=== PATIENT | female | born 1960 | race Caucasian/White ===

== ENCOUNTER 2022-09-22 06:39 | Outpatient (CLI) | payer OTHER, SELFPAY ==
--- NOTE | ~2022-09-22 | MR_ITS ---
MRI of the lumbar spine Clinical History: Back pain Technique: Axial T2-weighted images, and sagittal T1-weighted, T2-weighted, and T2 fat-sat images wer e acquired. Findings: There is no fracture or subluxation of the lumbar spine. Vertebral bodies maintain normal h eight and alignment. No suspicious bone marrow signal abnormality seen. At L1-L2, there is no disc bulge or herniation. No spinal canal stenosis or neural foraminal narrowin g. At L2-L3, there is minimal degenerative disc narrowing and mild facet arthropathy. No disc bulge or h erniation. No spinal canal stenosis or neural foraminal narrowing. L3-L4, there is mild diffuse disc bulge and mild facet arthropathy. No spinal canal stenosis or neura l foraminal narrowing. At L4-L5, there is minimal disc bulge and mild facet arthropathy. No spinal canal stenosis or neural foraminal narrowing. At L5-S1, there is no disc bulge or herniation. There is mild facet arthropathy. No spinal canal sten osis or neural foraminal narrowing. Paravertebral soft tissues are unremarkable. Impression: Minimal degenerative change, as above. Reviewed, dictated and finalized at location . Impression: Minimal degenerative change, as above.
== END 2022-09-22 06:40 | disposition home or self-care (01) ==
PROVIDERS: PCP Family Medicine; Visit Provider Family Medicine
DX: M54.50 Low back pain, unspecified (principal)
CPT/HCPCS: 72148

== ENCOUNTER 2024-09-07 09:46 | Emergency (ER) | payer OTHER, SELFPAY ==
[2024-09-07 10:02] VITALS: BP 173/102; PULSE 88; RESP 18; TEMP 36.4; O2SAT 98
--- NOTE | 2024-09-07 10:02 | ED_ITS ---
HPI - Abdominal Pain General Chief Complaint: Abdominal Pain Stated Complaint: stomach pain, low abd pain Source: patient and RN notes reviewed Mode of arrival: ambulatory Limitations: no limitations History of Present Illness HPI narrative: 64-year-old female history of MS and GERD presented for complaint of mid abdominal pain radiating to the mid/low back. Onset 0100. She says it feels like something ?blew up or shot off inside the stomach. Has had burning sensation and bloating since then. Rates pain 01/02. Takes omeprazole. Patient also endorses the left upper arm feels 'funny' with some pain to the back of the upper arm like a pinched nerve. Also reports some chest discomfort which she describes as nerves. Denies associated nausea, vomiting, diarrhea, dizziness, fever, or palpitations. LBM today. Related Data Allergies Allergy/AdvReac Type Severity Reaction Status Date / Time codeine Allergy Unknown UNKNOWN Verified 09/07/24 10:22 GENERIC PREDNISONE Allergy Intermediate HIVES Uncoded 09/07/24 10:22 Review of Systems Review of Systems: CONSTITUTIONAL: Denies body aches, fever, chills ENT: Denies rhinorrhea, congestion CARDIOVASCULAR: Denies chest pain, palpitations, or edema. RESPIRATORY: Denies cough or dyspnea. GASTROINTESTINAL: Endorses abdominal pain Denies nausea, vomiting, diarrhea, hematochezia, melena, hematemesis GENITOURINARY: Denies dysuria, hematuria, or CVA tenderness. SKIN: Denies rash, or wounds. MUSCULOSKELETAL: reports mid low back pain NEUROLOGIC: Denies headache, numbness, tingling, or weakness. All systems reviewed & are unremarkable except as noted in HPI and below PMFSH Past Medical History Medical History (Updated 09/07/24 @ 10:44 by Lexi Arambula, ASSISTANT PROFESSOR OF THEATER) Multiple sclerosis Comments At time of signature, I have reviewed and agree with nursing past medical, surgical, social and family history unless otherwise noted. Please see nursing chart for further information. There is no relevant family history pertinent to the presenting complaint Exam Narrative: GENERAL: Well-appearing, and in no acute distress. EYES: EOMI. Conjunctivae normal. ENT: Mucous membranes pink and moist. CHEST: No respiratory distress. Clear to auscultation. HEART: Regular rate and rhythm. No murmur appreciated. Normal peripheral pulses. ABDOMEN: abd soft, nondistended, normal active bowel sounds. Tender abdomen to epigastric area; No guarding, rebound tenderness, asymmetry. No pulsatile masses. No organomegaly. Negative Rosales?s sign. No periumbilical tenderness. No Supra public tenderness or distension. EXTREMITIES: Normal range of motion. No edema. SKIN: Warm, dry, no rash. Capillary refill normal. Normal skin turgor. NEURO: No focal deficits. Alert and oriented x3. PSYCH: Normal affect. Course Course Emergency Course: Patient is aware of diagnosis, understands and agrees to treatment plan. Anticipatory guidance given. Patient agrees to follow-up as directed and is aware of reasons to seek care at the emergency department. Portions of this record may have been created with voice recognition software Level of Care: Express Care Visit Vital Signs Vital signs: Vital Signs Temperature 97.6 F 09/07/24 10:02 Pulse Rate 88 09/07/24 10:02 Respiratory Rate 18 09/07/24 10:02 Blood Pressure 173/102 H 09/07/24 10:02 Pulse Oximetry 98 09/07/24 10:02 Oxygen Delivery Room Air 09/07/24 10:02 Temperature 97.6 F 09/07/24 10:02 Pulse Rate 88 09/07/24 10:02 Respiratory Rate 18 09/07/24 10:02 Blood Pressure 173/102 H 09/07/24 10:02 Pulse Oximetry 98 09/07/24 10:02 Oxygen Delivery Room Air 09/07/24 10:02 Transfer Transfered to: [place] Transportation: Other (For private vehicle) Transfer rationale: Pt is agreeable to transfer. Requests transfer to [facility] via private vehicle/ ambulance. Risks of transportation reviewed with pt including injury, worsening of condition and . v/u. Sister will be driving pt; Report called to hospital, spoke with Dr Dubose; accepting physician. Pt is in stable condition at time of transfer. Advised to remain NPO and go directly to the hospital. MDM - Abdominal Pain MDM Narrative Medical decision making narrative: Patient with abdominal pain rating 7/10, bloating and radiating to the back. Advised ER transfer. Differential Diagnosis Differential diagnosis: Likely abdominal pain, acute appendicitis, calculus of kidney, constipation, diverticulitis, gastroenteritis, pancreatitis, small bowel obstruction and other ( GERD, PUD, gastritis, pancreatitis, gallbladder disease, hepaitits, acute [place], pericarditis, aortic dissection, pneumonia, pyelonephritis, bowel obstruction, PE, ingested foreign body) Discharge Plan Discharge Clinical Impression: Abdominal pain Qualifiers: Abdominal location: epigastric Qualified Code(s): R10.13 - Epigastric pain Patient Disposition: Acute Care Hospital Condition: Stable Patient Language: Monegasque Follow-up/Referrals: Jamil,MD Brando [Primary Care Provider] - Time of Disposition: 10:35
== END 2024-09-07 10:35 | disposition short-term general hospital (02) ==
PROVIDERS: Emergency Provider Nurse Practitioner Family; PCP Family Medicine
DX: R10.13 Epigastric pain (principal); G35 Multiple sclerosis
CPT/HCPCS: 99212; G0463

== ENCOUNTER 2024-09-07 10:57 | Emergency (ER) | payer OTHER, SELFPAY ==
--- NOTE | ~2024-09-07 | CT_ITS ---
Clinical Indication: Pain CT Scan of the Chest, Abdomen, and Pelvis with Contrast: Technique: Contiguous sections were acquired throughout the chest, abdomen, and pelvis after intraven ous administration of 100 cc of Omnipaque 350. Dose reduction technique was used on this scan by harvey rivero automated exposure control and iterative reconstruction technique. The dose-length product (DL P) was 620.26 mGy-cm. Findings: There is no evidence of any significant mediastinal, hilar or axillary lymphadenopathy. The mediastin al soft tissues appear normal. No aortic aneurysm or dissection. No pulmonary embolus seen. There is no evidence of pleural or pericardial effusion. The lungs are clear. No pulmonary nodules or infiltrates are noted. Suspected diffuse hepatic steatosis. Tiny gallstone. The spleen, pancreas, adrenals and kidneys are w ithin normal limits. No evidence of aortic aneurysm or dissection. No lymphadenopathy. No bowel obstruction or bowel wall thickening. There is no evidence to suggest acute appendicitis. Urinary bladder is unremarkable. No pelvic mass. No ascites. Impression: No acute abnormality. Diffuse hepatic steatosis. Tiny gallstone. Reviewed, dictated and finalized at location . Impression: No acute abnormality. Diffuse hepatic steatosis. Tiny gallstone.
--- OUTSIDE RECORDS SUMMARY | 2024-09-07 10:58 | XMS_ITS | Data Portability ---
Author Organization [facility], [address] ([place]) Address [address] [place] [address] Care Team Providers Care Extension Course Coordinator Name Role Phone TO GAN Primary Care Provider [phone] Assessment Encounter Date Assessment Date Assessment LastModified by Organization Details LastModified Time 11/01/2023 11/01/2023 In summary, patient is in the midst of what appears to be an MS flareup with leg weakness and brain fog. She is under a lot of stress with a with cancer and this may have precipitated that. We will do a short course of oral prednisone. christina PLAN 1. Sixteen day taper of oral prednisone. 2. Continue Rebif for MS preventive therapy. 3. I asked patient to give us a call in a week and let us know how she is doing. 4. Formal office follow up in six months. christina [email or web address] Not available 11/02/2023 11:23:38 05/09/2024 05/09/2024 In summary, patient s MS is stable. PLAN 1. Continue Rebif injections. 2. Follow up in six months. Patient is aware that I will be retiring at the end of the year, and she would like a referral down to the [facility] under Dr. Ruiz. We will be happy to help with that referral for her. [email or web address] Not available 05/09/2024 11:34:41 Plan of Treatment Reminders Order Date Submit Date Provider Last Modified By Organization Details Last Modified Time Details Appointments None recorded. Lab None recorded. Referral None recorded. Procedures None recorded. Surgeries None recorded. Imaging None recorded. Medication Orders prednisone 10 mg tablet 2023 024 [facility], [address] [facility], [place], [address], 4 13:03:03 Patient TargetsNo targets recorded. Patient InstructionsNo instructions recorded. Reason for Referral None Reported. Problems Name Problem SNOMED Code Status Onset Date Resolution Date Notes Provider Name and Address Organization Details Recorded Time Multiple sclerosis 45723807 Active 024 Missael [facility] 4 16:20:22 Problem Notes None recorded. Procedures Surgical History Date Name Laterality Status Provider Name and Address Organization Details Recorded Time Colonoscopy with biopsy completed Not Available Health Note 10/30/2023 14:02:07 Imaging Results None recorded. Procedure Notes None recorded. Medical Equipment None Reported. Allergies Allergen ID Allergen Name Allergen Category Reaction Reaction Severity Criticality Documentation Date Start Date Code Code System Note Provider Name and Address Organization Details Recorded Time 082706 prednisol one medicatio n hives Not available Not available 07/24/20232007 8638 RxNorm React ion: Hives ; Rash; Not Available Not Available Not Available 881743 codeine medicatio n nausea Not available Not available 07/24/20232007 2670 RxNorm React ion: Nause a; Not Available Not Available Not Available Medications Name Sig Start Date Stop Date Status Note LastModified by Organization Details LastModified Time cyclobenzapr ine 10 mg tablet TAKE 1 TABLET BY MOUTH THREE TIMES DAILY NEEDED active Not Available Not Available No t Available prednisone 10 mg tablet 6 tablets daily for 4 days, 4 tablets daily for 4 days, 2 tablets daily for 4 days, 1 tablet daily for 1 day, then stop active Not Available Not Available No t Available BD Regular Bevel [place] 20 gauge x 1 USE TO DRAW ACTHAR active Not Available Not Available No t Available metoprolol succinate ER 50 mg tablet,exten ded release 24 hr TAKE 1 TABLET BY MOUTH DAILY active Not Available Not Available Not Available sertraline 100 mg tablet TAKE 1 TABLET BY MOUTH DAILY active Not Available Not Available Not Available syringe (disposable) 3 mL USE FOR ACTHAR active Not Available Not Available No t Available sertraline 25 mg tablet TAKE 1 (one) tablet once daily active Not Available Not Available No t Available omeprazole 20 mg capsule,jaz yed release TAKE 1 CAPSULE BY MOUTH DAILY active Not Available Not Available Not Available amoxicillin 875 mg-potassium clavulanate 125 mg tablet TAKE 1 TABLET BY MOUTH TWO TIMES DAILY active Not Available Not Available Not Available Rebif (with albumin) 44 mcg/0.5 mL subcutaneous syringe Inject 0.5 mL 3 times a week by subcutaneou s route. 2024 active Not Available Not Available Not Avai lable Sharps Container USE FOR NEEDLE DISPOSAL active Not Available Not Available No t Available Alcohol Prep Pads USE FOR ACTHAR active Not Available Not Available No t Available BD Regular Bevel [place] 25 gauge x 5/8 USE TO INJECT ACTHAR active Not Available Not Available No t Available Rebif Rebidose 44 mcg/0.5 mL subcutaneous pen injector active Not Available Not Available Not Available Acthar 80 unit/mL injection gel INJECT 1 ML (80 UNITS) UNDER THE SKIN DAILY FOR 10 DAYS [G35] active Not Available Not Available No t Available Vitals Date Recorded Systolic blood pressure Diastolic blood pressure Provider Name and Address Organization Details Last Updated DateTime 05/09/2024 108 mm[Hg] 70 mm[Hg] Kvng Alberts MD [facility] [address], [phone] 05/09/2024 11:28:15 Social History Question Answer Notes LastModified by Organizat ion Details LastModified Time Do You Have An Advance Directive? No [email or web address] Information not available 10/30/2023 What Is Your Level Of Alcohol Consumption? None [email or web address] Information not available 10/30/2023 What Is Your Level Of Caffeine Consumption? Occasional [email or web address] Information not available 10/30/2023 Are You Currently Employed? No [email or web address] Information not available 10/30/2023 What Is Your Occupation? [employer] [email or web address] Information not available 10/30/2023 How Many Times Per Week Do You Exercise? Less Than 1 Time Per Week [email or web address] Information not available 10/30/2023 Do You Have A Medical Power Of Radio Interference Expert? No [email or web address] Information not available 10/30/2023 What Was The Date Of Your Most Recent Tobacco Screening? 11/01/2023 [email or web address] Information not available 10/30/2023 What Is Your Relationship Status? [email or web address] Information not available 10/30/2023 Do You Use Any Illicit Or Recreational Drugs? No [email or web address] Information not available 10/30/2023 Sex: Unknown Functional Status Question Answer Note LastModified by Organizat ion Details LastModified Time What is your exercise level? Occasional [email or web address] Information not available 10/30/2023 Mental Status None recorded. Family History Relationship Description Onset Age of this Age Resolved Age Notes LastModified by Organization Details LastModified Time Mother Arthritis [email or web address] Not available 10/30/2023 14:02:06 Mother Asthma [email or web address] Not available 14:02:06 Maternal Grandmother Arthritis [email or web address] Not available 11/2023 14:02:06 Sister Asthma [email or web address] Not available 14:02:06 Sister Diabetes mellitus [email or web address] Not available 2023 14:02:06 Sister Hypertensive disorder [email or web address] Not available 2023 14:02:06 Father Family history of malignant neoplasm [email or web address] Not available 2023 14:02:06 Father Diabetes mellitus [email or web address] Not available 2023 14:02:06 Father Hypertensive disorder [email or web address] Not available 2023 14:02:06 Maternal Grandfather Family history of malignant neoplasm [email or web address] Not available 2023 14:02:06 Brother Diabetes mellitus [email or web address] Not available 2023 14:02:06 Notes:Mother has arthritis M other has asthma Mother has brother also has ms. and mother had als. Brother has diabetes Brother has brother also has ms. and mother had als. Medical History Condition Response Diabetes N Anxiety Disorder N Bleeding Disorder N Attention-deficit Hyperactivity Disorder N High Blood Pressure Y Arthritis Y Hyperlipidemia N Cancer N Stroke N Thyroid Problems N Asthma N Depression N COPD N Anemia N Seizures N Heart Disease N Fibromyalgia N Osteoporosis N Kidney Disease N Gynecological HistoryNo gynecological history recorded. Obstetrics History GPAL:G 0 P 0 0 0 0 Past Encounters Encounter ID Performer Location Encounter Start Date Encounter Closed Date Diagnosis/Indication Diagnosis SNOMED-CT Code Diagnosis ICD10 Code Diagnosis Note [id number] Kvng Alberts MD [address] ([place]) [address] [place] [phone] 11/01/2023 12:13:37 11/06/2023 15:06:50 Multiple sclerosis 78607571 G35 [id number] Kvng Alberts MD [address] ([place]) [address] [place] [address],[address] [place] [address] 11/09/2023 13:14:29 11/11/2023 14:24:53 [id number] Kvng Alberts MD [address] ([place]) [address] [place] [address],[address] [place] [address] 05/09/2024 10:56:29 05/09/2024 12:43:51 Multiple sclerosis 63414384 G35 Taking hig h risk medication 0861238341 87619 Z79.899 Health Concerns Section Related Observation LastModified by Organization Detai ls LastModified Time None Recorded Concern Status LastModified by Organization Details LastModified Time None Recorded Advance Directives Directive N: Payers Encounter Date Sequence Insurance Name Policy Number Policy Nance Covered Member ID Nance Member ID Guarantor Name 11/09/2023 1 [facility] [employer] ([place]) [id number] Celinaelvia Diaz [id number] [facility] 05/09/2024 1 [facility] [place] [place] [id number] [facility] [id number] Celina Horton Notes Date Note Type Note Provider Name and Address Organization Details Recorded Time 11/01/2023 text/html Patient was seen in the office on an urgent basis today.Patient has multiple sclerosis and is on Rebif injections. She had not had any flareups in many years but, starting five days ago, began experiencing leg weakness with some difficulty walking. She has also felt foggy headed. She feels this is a flareup for her. She has taken prednisone in the past and has tolerated this well (she notes an ALLERGY TO PREDNISILONE) and would like to do a course of prednisone again.christina Kvng Alberts MD [address] [place] [address], [phone], [facility] 11/02/2023 11:25:40 05/09/2024 text/html Patient was seen in the office for follow up. She has multiple sclerosis. She is on Rebif injections. She tolerates those well. She had a flareup in November 2023 with some confusion that was treated with Acthar and she is now back to baseline. She is walking without any adaptive equipment and is independent in her cares. She does not feel we need to make any changes today. Kvng Alberts MD [address] [facility], [place], [address], [place] [facility] 05/10/2024 08:33:17 OBGyn Episode No OBEpisode recorded.
--- OUTSIDE RECORDS SUMMARY | 2024-09-07 10:59 | XMS_ITS | Clinical Summary ---
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 Name Role Phone Brando Negron MD Primary Care Provider Allergies Active Allergy Reactions Criticality Noted Date Comments Codeine Nausea only Low 08/21/2007 Prednisolone Hives Medium 08/21/2007 Medications omeprazole (PriLOSEC) 20 mg capsule Take 1 capsule (20 mg total) by mouth daily 04/22/2024 Active sertraline (ZOLOFT) 100 mg tablet Take 1 tablet (100 mg total) by mouth daily Active sertraline (ZOLOFT) 25 mg tablet TAKE 1 (one) tablet once daily Active metoprolol XL (TOPROL-XL) 50 mg extended release tablet Take 1 tablet (50 mg total) by mouth daily Active ascorbic acid (vitamin C) 1,000 mg tablet Take 800 mg by mouth daily Active magnesium gluconate 200 mg tabletIndicatio ns:hypomagnesem ia 1.125 tablets (225 mg total) Active zinc gluconate 50 mg tablet Take 7.5 mg by mouth daily Active Rebif, with albumin, 44 mcg/0.5 mL injection Inject 0.5 mL (44 mcg total) under the skin 3 (three) times a week 18 mL 1 08/02/2024 Active Active Problems Problem Noted Date Diagnosed Date Multiple sclerosis 10/29/2023 Encounters Date Type Department Care Team Description 09/04/2024 Telephone [facility] Multiple Sclerosis [address] [place] [phone] Jen Mcwilliams MD 08/20/2024 5:43 PM WAIST PLEATER - 08/20/2024 11:59 PM WAIST PLEATER Hospital Encounter [facility] [address] [place] [address] Jen Mcwilliams MD Multiple sclerosis (HCC) Discharge Disposition: Discharge to home or self care 07/24/2024 9:42 AM WAIST PLEATER - 07/24/2024 11:59 PM WAIST PLEATER Hospital Encounter [facility] Radiology [address] [facility] [place] [address] Jen Mcwilliams MD Multiple sclerosis (HCC) Discharge Disposition: Discharge to home or self care 07/02/2024 4:30 PM WAIST PLEATER Lab [facility] [address] [place] [phone] Multiple sclerosis (HCC); Vitamin D deficiency; High risk medication use 07/02/2024 3:00 PM WAIST PLEATER Office Visit [facility] Multiple Sclerosis [address] [facility] [address] [place] [address] Jen Mcwilliams MD High risk medication use (Primary Dx); Multiple sclerosis (HCC); Vitamin D deficiency from Last 3 Months Medical History Medical History Date Comments Hypertension Depression Anxiety Family History Medical History Relation Name Comments Multiple sclerosis Brother Cancer Father ALS Mother Relation Name Status Comments Brother Father Mother Social History Tobacco Use Types Packs/Day Years Used Date Smoking Tobacco: Never Smokeless Tobacco: Never Tobacco Cessation:Counseling Given: Not Answered AUDIT-C Answer Date Recorded Q1: How often do you have a drink containing alc ohol? Never 07/02/2024 Average Number of Drinks Not on file 025 Frequency of Binge Drinking Not on file 12/2024 Comments No Sex and Gender Information Value Date Recorded Sex Assigned at Not on file Legal Sex Female 3:48 PM WAIST PLEATER Gender Identity Not on file Sexual Orientation Not on file Obstetrics History Last Filed Vital Signs Vital Sign Reading Time Taken Comments Blood Pressure 165/94 07/02/2024 2:52 PM WAIST PLEATER Pulse 87 07/02/2024 2:52 PM WAIST PLEATER Temperature - - Respiratory Rate - - Oxygen Saturation - - Inhaled Oxygen Concentration - - Weight 88.5 kg (195 lb) 08/20/2024 5:48 PM WAIST PLEATER Height 185.4 cm (6' 1 ) 08/20/2024 5:48 PM WAIST PLEATER Body Mass Index 25.73 08/20/2024 5:48 PM WAIST PLEATER Plan of Treatment Health Maintenance Due Date Last Done Comments Cervical Cancer Screening 1961 Colon Cancer Screening-Colonoscopy 1961 Depression Screening 1961 Hepatitis C Screening 1961 DTaP/Tdap/Td Vaccine (1 - Tdap) 01/18/1972 Hepatitis B Screening 1979 Regular Well Visit/Exam 18-64 1979 Zoster Vaccine (1 of 2) 2011 Covid-19 Vaccine (4 - season) 2024 05/17/2021, 09/25/2020, 08/28/2020 Influenza Vaccine (#1) 2024 , 04/21/2022, 07/05/2021, Additional history exists Breast Cancer Screening-Mammogram 05/27/2025 05/27/2024, 05/27/2024, 05/25/2023, Additional history exists Pneumococcal vaccine <65 Aged Out No longer eligible based on patient's age to complete this topic Procedures Procedure Name Priority Date/Time Associated Diagnosis Comments MRI THORACIC SPINE W WO CONTRAST Schedule Routine, Read Routine (OP Routine) 08/20/2024 7:24 PM WAIST PLEATER Multiple sclerosis (HCC) MRI CERVICAL SPINE W WO CONTRAST Schedule Routine, Read Routine (OP Routine) 08/20/2024 7:24 PM WAIST PLEATER Multiple sclerosis (HCC) MRI MS BRAIN 3T PROTOCOL W WO CONTRAST Routine 07/24/2024 10:35 AM WAIST PLEATER Multiple sclerosis (HCC) EGFR Routine 07/02/2024 4:00 PM WAIST PLEATER Multiple sclerosis (HCC) High risk medication use DIFFERENTIAL AUTO Routine 07/02/2024 4:0 0 PM WAIST PLEATER Multiple sclerosis (HCC) High risk medication use CBC WITH AUTO DIFFERENTIAL Routine 07/02/2024 4:00 PM WAIST PLEATER Multiple sclerosis (HCC) High risk medication use COMPREHENSIVE METABOLIC PANEL Routine 07/02/2024 4:00 PM WAIST PLEATER Multiple sclerosis (HCC) High risk medication use VITAMIN D 25 HYDROXY Routine 07/02/2024 4:00 PM WAIST PLEATER Multiple sclerosis (HCC) Vitamin D deficiency from Last 3 Months Results * MRI Thoracic Spine W WO Contrast (08/20/2024 7:24 PM WAIST PLEATER) Anatomical Region Laterality Modality Spine N/A Magnetic Resonan ce 08/21/2024 11:0 0 AM WAIST PLEATER Impressions 08/21/2024 11:53 AM WAIST PLEATER 1. T2 hyperintense lesion in the ventral cord at C1-C2, not present on distant comparison exam from 2008. No active demyelination or enhancement. 2. No thoracic cord lesions. 3. Multilevel degenerative changes in the cervical and thoracic spine, most prominently at C4-C5 with moderate spinal canal and severe bilateral neuroforaminal stenosis. Dictated by: Mukul Clay M.D. The radiology attending physician has personally reviewed this study, and had reviewed and/or edited this written report and agrees with it. Electronically signed by: Paulina Hudson M.D. Narrative 08/21/2024 11:53 AM WAIST PLEATER EXAMINATION: 1. Magnetic resonance imaging (MRI) of the cervical spine without and with contrast 2. Magnetic resonance imaging (MRI) of the thoracic spine without and with contrast HISTORY: 64 years-old Female with multiple sclerosis. TECHNIQUE: Multiplanar multi-weighted MRI of the cervical spine was performed without and with intravenous contrast using the standard protocol. Multiplanar multi-weighted MRI of the thoracic was performed without and with intravenous contrast using the standard protocol. Scanner: [facility] Field Strength: 3T Contrast information: 20 mL Gadoterate Meglumine COMPARISON: MRI of thoracic spine 08/01/2008, MRI cervical spine 12/11/2008 FINDINGS: CERVICAL SPINE: New Spine T2 Lesions: T2 hyperintense lesion in the ventral cord at C1-C2 Enhancing Spine Lesions: None. There is straightening of the cervical spine. Moderate type I endplate changes present at C4-C5 posteriorly. No acute fracture is identified. The craniocervical junction is normal. The visualized portions of the skull base and the posterior fossa are normal. There is disc height loss, most prominently at C4-C5. Disc osteophyte complex at this level results in moderate spinal canal stenosis. There is severe bilateral neuroforaminal stenosis at this level. There are no annular fissures identified. No soft tissue abnormality is identified. Normal signal voids are present in the vertebral arteries. THORACIC SPINE: New Spine T2 Lesions: None. Enhancing Spine Lesions: None. The alignment of the thoracic spine is normal. Vertebral bodies demonstrate normal signal intensity on all sequences. There are no compression fractures. The spinal cord demonstrates normal signal intensity on all sequences. There is multilevel mild intervertebral disc height loss in the thoracic spine. Minimal disc bulge is present at multiple levels, most prominently at T6-T7, T7-T8, and T10-T11. There is no high-grade spinal canal or foraminal stenosis. Limited views of the chest and abdomen show no soft tissue abnormality. The aorta is normal. Procedure Note Paulina Hudson MD - 08/21/2024 EXAMINATION: 1. Magnetic resonance imaging (MRI) of the cervical spine without and with contrast 2. Magnetic resonance imaging (MRI) of the thoracic spine without and with contrast HISTORY: 64 years-old Female with multiple sclerosis. TECHNIQUE: Multiplanar multi-weighted MRI of the cervical spine was performed without and with intravenous contrast using the standard protocol. Multiplanar multi-weighted MRI of the thoracic was performed without and with intravenous contrast using the standard protocol. Scanner: [facility] Field Strength: 3T Contrast information: 20 mL Gadoterate Meglumine COMPARISON: MRI of thoracic spine 08/01/2008, MRI cervical spine 12/11/2008 FINDINGS: CERVICAL SPINE: New Spine T2 Lesions: T2 hyperintense lesion in the ventral cord at C1-C2 Enhancing Spine Lesions: None. There is straightening of the cervical spine. Moderate type I endplate changes present at C4-C5 posteriorly. No acute fracture is identified. The craniocervical junction is normal. The visualized portions of the skull base and the posterior fossa are normal. There is disc height loss, most prominently at C4-C5. Disc osteophyte complex at this level results in moderate spinal canal stenosis. There is severe bilateral neuroforaminal stenosis at this level. There are no annular fissures identified. No soft tissue abnormality is identified. Normal signal voids are present in the vertebral arteries. THORACIC SPINE: New Spine T2 Lesions: None. Enhancing Spine Lesions: None. The alignment of the thoracic spine is normal. Vertebral bodies demonstrate normal signal intensity on all sequences. There are no compression fractures. The spinal cord demonstrates normal signal intensity on all sequences. There is multilevel mild intervertebral disc height loss in the thoracic spine. Minimal disc bulge is present at multiple levels, most prominently at T6-T7, T7-T8, and T10-T11. There is no high-grade spinal canal or foraminal stenosis. Limited views of the chest and abdomen show no soft tissue abnormality. The aorta is normal. IMPRESSION: 1. T2 hyperintense lesion in the ventral cord at C1-C2, not present on distant comparison exam from 2008. No active demyelination or enhancement. 2. No thoracic cord lesions. 3. Multilevel degenerative changes in the cervical and thoracic spine, most prominently at C4-C5 with moderate spinal canal and severe bilateral neuroforaminal stenosis. Dictated by: Mukul Clay M.D. The radiology attending physician has personally reviewed this study, and had reviewed and/or edited this written report and agrees with it. Electronically signed by: Paulina Hudson M.D. Jen Mcwilliams MD IMG MRI PROCEDURES Final Result * MRI Cervical Spine W WO Contrast (08/20/2024 7:24 PM WAIST PLEATER) Anatomical Region Laterality Modality Spine N/A Magnetic Resonan ce 08/21/2024 11:0 0 AM WAIST PLEATER Impressions 08/21/2024 11:53 AM WAIST PLEATER 1. T2 hyperintense lesion in the ventral cord at C1-C2, not present on distant comparison exam from 2008. No active demyelination or enhancement. 2. No thoracic cord lesions. 3. Multilevel degenerative changes in the cervical and thoracic spine, most prominently at C4-C5 with moderate spinal canal and severe bilateral neuroforaminal stenosis. Dictated by: Mukul Clay M.D. The radiology attending physician has personally reviewed this study, and had reviewed and/or edited this written report and agrees with it. Electronically signed by: Paulina Hudson M.D. Narrative 08/21/2024 11:53 AM WAIST PLEATER EXAMINATION: 1. Magnetic resonance imaging (MRI) of the cervical spine without and with contrast 2. Magnetic resonance imaging (MRI) of the thoracic spine without and with contrast HISTORY: 64 years-old Female with multiple sclerosis. TECHNIQUE: Multiplanar multi-weighted MRI of the cervical spine was performed without and with intravenous contrast using the standard protocol. Multiplanar multi-weighted MRI of the thoracic was performed without and with intravenous contrast using the standard protocol. Scanner: [facility] Field Strength: 3T Contrast information: 20 mL Gadoterate Meglumine COMPARISON: MRI of thoracic spine 08/01/2008, MRI cervical spine 12/11/2008 FINDINGS: CERVICAL SPINE: New Spine T2 Lesions: T2 hyperintense lesion in the ventral cord at C1-C2 Enhancing Spine Lesions: None. There is straightening of the cervical spine. Moderate type I endplate changes present at C4-C5 posteriorly. No acute fracture is identified. The craniocervical junction is normal. The visualized portions of the skull base and the posterior fossa are normal. There is disc height loss, most prominently at C4-C5. Disc osteophyte complex at this level results in moderate spinal canal stenosis. There is severe bilateral neuroforaminal stenosis at this level. There are no annular fissures identified. No soft tissue abnormality is identified. Normal signal voids are present in the vertebral arteries. THORACIC SPINE: New Spine T2 Lesions: None. Enhancing Spine Lesions: None. The alignment of the thoracic spine is normal. Vertebral bodies demonstrate normal signal intensity on all sequences. There are no compression fractures. The spinal cord demonstrates normal signal intensity on all sequences. There is multilevel mild intervertebral disc height loss in the thoracic spine. Minimal disc bulge is present at multiple levels, most prominently at T6-T7, T7-T8, and T10-T11. There is no high-grade spinal canal or foraminal stenosis. Limited views of the chest and abdomen show no soft tissue abnormality. The aorta is normal. Procedure Note Paulina Hudson MD - 08/21/2024 EXAMINATION: 1. Magnetic resonance imaging (MRI) of the cervical spine without and with contrast 2. Magnetic resonance imaging (MRI) of the thoracic spine without and with contrast HISTORY: 64 years-old Female with multiple sclerosis. TECHNIQUE: Multiplanar multi-weighted MRI of the cervical spine was performed without and with intravenous contrast using the standard protocol. Multiplanar multi-weighted MRI of the thoracic was performed without and with intravenous contrast using the standard protocol. Scanner: [facility] Field Strength: 3T Contrast information: 20 mL Gadoterate Meglumine COMPARISON: MRI of thoracic spine 08/01/2008, MRI cervical spine 12/11/2008 FINDINGS: CERVICAL SPINE: New Spine T2 Lesions: T2 hyperintense lesion in the ventral cord at C1-C2 Enhancing Spine Lesions: None. There is straightening of the cervical spine. Moderate type I endplate changes present at C4-C5 posteriorly. No acute fracture is identified. The craniocervical junction is normal. The visualized portions of the skull base and the posterior fossa are normal. There is disc height loss, most prominently at C4-C5. Disc osteophyte complex at this level results in moderate spinal canal stenosis. There is severe bilateral neuroforaminal stenosis at this level. There are no annular fissures identified. No soft tissue abnormality is identified. Normal signal voids are present in the vertebral arteries. THORACIC SPINE: New Spine T2 Lesions: None. Enhancing Spine Lesions: None. The alignment of the thoracic spine is normal. Vertebral bodies demonstrate normal signal intensity on all sequences. There are no compression fractures. The spinal cord demonstrates normal signal intensity on all sequences. There is multilevel mild intervertebral disc height loss in the thoracic spine. Minimal disc bulge is present at multiple levels, most prominently at T6-T7, T7-T8, and T10-T11. There is no high-grade spinal canal or foraminal stenosis. Limited views of the chest and abdomen show no soft tissue abnormality. The aorta is normal. IMPRESSION: 1. T2 hyperintense lesion in the ventral cord at C1-C2, not present on distant comparison exam from 2008. No active demyelination or enhancement. 2. No thoracic cord lesions. 3. Multilevel degenerative changes in the cervical and thoracic spine, most prominently at C4-C5 with moderate spinal canal and severe bilateral neuroforaminal stenosis. Dictated by: Mukul Clay M.D. The radiology attending physician has personally reviewed this study, and had reviewed and/or edited this written report and agrees with it. Electronically signed by: Paulina Hudson M.D. us Jen Mcwilliams MD IM MRI PROCEDURES Final Result * MRI MS Brain 3T Protocol W WO Contrast (07/24/2024 10:35 AM WAIST PLEATER) Anatomical Region Laterality Modality Head and Neck N/A Magnetic Resonan ce 07/24/2024 11:2 1 AM WAIST PLEATER Impressions 07/24/2024 12:05 PM WAIST PLEATER Approximately 5 new small white matter lesions since 2019 exam, given differences in technique limiting precise comparison. Enhancing Lesions: None Other significant findings: None Dictated by: Donavon Gloria M.D. The radiology attending physician has personally reviewed this study, and had reviewed and/or edited this written report and agrees with it. Electronically signed by: Michael Wood M.D. Narrative 07/24/2024 12:05 PM WAIST PLEATER EXAMINATION: Magnetic resonance imaging (MRI) of the brain and brainstem without and with contrast HISTORY: Multiple sclerosis TECHNIQUE: Multiplanar multi-weighted MRI of the brain, brainstem was performed without and with intravenous contrast using the multiple sclerosis protocol, which includes high resolution 3D T1-weighted, FLAIR, and T2*-weighted gradient echo images. Scanner: [facility] Field Strength: 3T Contrast information: 19 mL Gadoterate Meglumine The post-contrast scan was performed approximately 5 minutes after IV contrast administration. COMPARISON: 04/04/2019 FINDINGS: BRAIN: There are multiple foci of hyperintensity on FLAIR and T2-weighted images within the white matter compatible. This includes periventricular, subcortical white matter, cerebellar lesions. When compared to 04/04/2019, there are likely multiple new or increased size of existing lesions, approximately 5 new lesions, such as a left centrum semiovale lesion seen series 8001 image 16. A few left fagan radiata lesions are also likely new seen series 8001 image 17. None of these have definite enhancement. T1 Hypointense Black Holes : None Enhancing Brain Lesions: None T2/FLAIR [place] of Disease: Mild, less than 10 typical lesions or 20 punctate lesions Parenchymal Volume Loss: None Central Vein Sign: Less than 3 CVS+ lesions. Probable central vein sign in a left fagan radiata and right centrum semiovale lesion Other Significant Findings: None The visualized portions of the optic nerves are normal. The scalp and calvarium are normal. The superior sagittal sinus demonstrates normal venous flow. The corpus callosum is normal in shape and signal intensity. The pituitary and sella are normal. The brainstem and craniocervical junction are unremarkable. Diffusion weighted images reveal no hyperintensities to suggest acute cerebral infarction. The susceptibility weighted sequences reveal no evidence of acute or chronic hemorrhage. The ventricles are normal in size and position without evidence of hydrocephalus. The paranasal sinuses are normal. The visualized portions of the mastoids are unremarkable. The orbits appear normal. Normal flow voids are demonstrated in the carotid arteries and basilar artery. Procedure Note Michael Wood MD - 07/24/2024 EXAMINATION: Magnetic resonance imaging (MRI) of the brain and brainstem without and with contrast HISTORY: Multiple sclerosis TECHNIQUE: Multiplanar multi-weighted MRI of the brain, brainstem was performed without and with intravenous contrast using the multiple sclerosis protocol, which includes high resolution 3D T1-weighted, FLAIR, and T2*-weighted gradient echo images. Scanner: [facility] Field Strength: 3T Contrast information: 19 mL Gadoterate Meglumine The post-contrast scan was performed approximately 5 minutes after IV contrast administration. COMPARISON: 04/04/2019 FINDINGS: BRAIN: There are multiple foci of hyperintensity on FLAIR and T2-weighted images within the white matter compatible. This includes periventricular, subcortical white matter, cerebellar lesions. When compared to 04/04/2019, there are likely multiple new or increased size of existing lesions, approximately 5 new lesions, such as a left centrum semiovale lesion seen series 8001 image 16. A few left fagan radiata lesions are also likely new seen series 8001 image 17. None of these have definite enhancement. T1 Hypointense Black Holes : None Enhancing Brain Lesions: None T2/FLAIR [place] of Disease: Mild, less than 10 typical lesions or 20 punctate lesions Parenchymal Volume Loss: None Central Vein Sign: Less than 3 CVS+ lesions. Probable central vein sign in a left fagan radiata and right centrum semiovale lesion Other Significant Findings: None The visualized portions of the optic nerves are normal. The scalp and calvarium are normal. The superior sagittal sinus demonstrates normal venous flow. The corpus callosum is normal in shape and signal intensity. The pituitary and sella are normal. The brainstem and craniocervical junction are unremarkable. Diffusion weighted images reveal no hyperintensities to suggest acute cerebral infarction. The susceptibility weighted sequences reveal no evidence of acute or chronic hemorrhage. The ventricles are normal in size and position without evidence of hydrocephalus. The paranasal sinuses are normal. The visualized portions of the mastoids are unremarkable. The orbits appear normal. Normal flow voids are demonstrated in the carotid arteries and basilar artery. IMPRESSION: Approximately 5 new small white matter lesions since 2019 exam, given differences in technique limiting precise comparison. Enhancing Lesions: None Other significant findings: None Dictated by: Donavon Gloria M.D. The radiology attending physician has personally reviewed this study, and had reviewed and/or edited this written report and agrees with it. Electronically signed by: Michael Wood M.D. us Jen Mcwilliams MD IMG MRI PROCEDURES Final Result * eGFR (07/02/2024 4:00 PM WAIST PLEATER) eGFR 82 >=60 mL/min/1. 73 m2 Comment: Interpretive Data Reference Interval Normal >/= 90 mL/min/1.73m2 Mildly decreased* 60 - 89 mL/min/1.73m2 Mildly to moderately decreased 45 - 59 mL/min/1.73m2 Moderately to severely decreased 30 - 44 mL/min/1.73m2 Severely decreased 15 - 29 mL/min/1.73m2 Kidney Failure < 15 mL/min/1.73m2 *Relative to young adult level Estimated glomerular filtration rate is determined by the 2020 CKD-EPI equation recommended by the National [employer] (A Unifying Approach to GFR Estimation: Recommendations of the NKF-ASK Task Force on Reassessing the Inclusion of Race in Diagnosing Kidney Disease, JASN 2020). The CKD-EPI equation should not be used for patients with unstable renal function and has not been validated in children and those over 70. Current interpretive data was last reviewed 2021. Blood 07/02/2024 4:00 PM WAIST PLEATER 07/02/2024 4:12 PM WAIST PLEATER us Jen Mcwilliams MD LAB BLOOD ORDERABLES Final Resul t [facility] Department [place] [address] * Differential, auto (07/02/2024 4:00 PM WAIST PLEATER) Neutrophil abs 2.7 1.5 - 6.5 K/cumm Imm gran abs 0.0 0.0 - 0.1 K/cumm [facility] Lymphocyte abs 1.6 0.8 - 3.3 K/cumm [facility] Monocyte abs 0.4 0.2 - 0.8 K/cumm [facility] Eosinophil abs 0.1 0.0 - 0.5 K/cumm [facility] Basophil abs 0.0 0.0 - 0.1 K/cumm [facility] Neutrophil pct 56.9 % [facility] Comment: Interpretive Data Percent cell count reference ranges are not reported, since discordance with absolute values may lead to misinterpretation of CBC data. Current Interpretive Data was last revised on 2017. Imm gran pct 0.2 % [facility] Comment: Interpretive Data Percent cell count reference ranges are not reported, since discordance with absolute values may lead to misinterpretation of CBC data. Current Interpretive Data was last revised on 2017. Lymphocyte pct 32.8 % [facility] Comment: Interpretive Data Percent cell count reference ranges are not reported, since discordance with absolute values may lead to misinterpretation of CBC data. Current Interpretive Data was last revised on 2017. Monocyte pct 7.8 % [facility] Comment: Interpretive Data Percent cell count reference ranges are not reported, since discordance with absolute values may lead to misinterpretation of CBC data. Current Interpretive Data was last revised on 2017. Eosinophil pct 1.9 % [facility] Comment: Interpretive Data Percent cell count reference ranges are not reported, since discordance with absolute values may lead to misinterpretation of CBC data. Current Interpretive Data was last revised on 2017. Basophil pct 0.4 % [facility] Comment: Interpretive Data Percent cell count reference ranges are not reported, since discordance with absolute values may lead to misinterpretation of CBC data. Current Interpretive Data was last revised on 2017. Blood 07/02/2024 4:00 PM WAIST PLEATER 07/02/2024 4:09 PM WAIST PLEATER us Jen Mcwilliams MD LAB BLOOD ORDERABLES Final Resul t [facility] [place] [address] * (ABNORMAL) CBC with auto differential (07/02/2024 4:00 PM WAIST PLEATER) [facility] WBC 4.8 3.8 - 9.9 K/cumm Hgb 11.7(L) 11.9 - 15.5 g/dL [facility] Hct 36.1 35.6 - 45.5 % [facility] Plt 107(L) 150 - 400 K/cumm [facility] MPV 12.2 9.1 - 12.3 fL [facility] RBC 4.21 3.90 - 5.20 M/cumm [facility] MCV 85.7 81.3 - 96.4 fL [facility] MCH 27.8 27.1 - 33.3 pg [facility] MCHC 32.4 32.3 - 35.7 g/dL [facility] RDW CV 14.2 11.1 - 14.9 % [facility] RDW SD 43.8 35.7 - 48.1 fL [facility] NRBC abs 0.00 0.00 - 0.01 K/cumm [facility] Blood 07/02/2024 4:00 PM WAIST PLEATER 07/02/2024 4:09 PM WAIST PLEATER us Jen Mcwilliams MD LAB BLOOD ORDERABLES Final Resul t Performing Organization Address City/[facility]/ZIP Co de Phone Number [facility] Department [place] [address] * Vitamin D 25 hydroxy (07/02/2024 4:00 PM WAIST PLEATER) [facility] Vitamin D 25-OH 39 30 - 80 ng/mL Blood 07/02/2024 4:00 PM WAIST PLEATER 07/02/2024 4:08 PM WAIST PLEATER us Jen Mcwilliams MD LAB BLOOD ORDERABLES Final Resul t Performing Organization Address City/[facility]/ZIP Co de Phone Number [facility] [place] [address] * Comprehensive metabolic panel (07/02/2024 4:00 PM WAIST PLEATER) Sodium 138 135 - 145 mmol/L Potassium, pl 4.3 3.3 - 4.9 mmol/L [facility] Chloride 103 97 - 110 mmol/L [facility] CO2 27 22 - 32 mmol/L [facility] Anion gap 8 2 - 15 mmol/L [facility] BUN 17 6 - 25 mg/dL [facility] Creatinine 0.81 0.60 - 1.10 mg/dL [facility] Glucose 94 70 - 199 mg/dL [facility] Comment: Interpretive Data Fasting glucose >/= 126 mg/dl is diagnostic for diabetes. Fasting is defined as no caloric intake for at least 8 hours. Fasting glucose between 100 mg/dl to 125 mg/dl is diagnostic of prediabetes. In a patient with classic symptoms of hyperglycemia or hyperglycemic crisis, a random glucose >/= 200 mg/dl is diagnostic for diabetes. In the absence of unequivocal hyperglycemia, results should be confirmed by repeat testing. The classification and Diagnosis of Diabetes Diabetes Care 202; 46: S19-S40. Current interpretive data was last revised 2022. Calcium 9.6 8.5 - 10.3 mg/dL [facility] Bilirubin, total 0.5 0.1 - 1.2 mg/dL [facility] Protein, pl 7.9 6.5 - 8.5 g/dL [facility] Albumin 4.5 3.5 - 5.0 g/dL [facility] Alk phos 105 40 - 130 Units/L [facility] ALT 25 7 - 45 Units/L [facility] AST 35 10 - 45 Units/L [facility] Blood 07/02/2024 4:00 PM WAIST PLEATER 07/02/2024 4:08 PM WAIST PLEATER us Jen Mcwilliams MD LAB BLOOD ORDERABLES Final Resul t [facility] Department [place] [address] from Last 3 Months Insurance [facility] [id number] [facility] [id number] Care Teams Interior Plant Caretaker Relationship Specialty Start Date End Date Brando Negron MD [address] [place] [id number] PCP - General Family Medicine 04/29/24
--- OUTSIDE RECORDS SUMMARY | 2024-09-07 10:59 | XMS_ITS | Continuity of Care Document ---
Author Organization [facility] Address [address] [place] [address] Phone Care Team Providers Care Instrumentation And Controls Designer Name Role Phone Tobin Frey MD Unavailable Unavailable Allergies, Adverse Reactions, Alerts Substance Reaction Status Criticality codeine Active No Information PREDNISOLONE ACETATE Active No Info rmation Medications Medication Instructions Dosage Effective Dates (start - stop) Status Comments sertraline 50 mg tablet take 1 tablet by oral route every day 50 MG - Active omeprazole 40 mg capsule,delayed release take 1 capsule by oral route every day before a meal 40 MG - Active metoprolol tartrate 50 mg tablet take 1 tablet by oral route 2 times every day with meals 50 MG - Active Rebif Rebidose 44 mcg/0.5 mL subcutaneous pen injector inject 0.5 milliliter by subcutaneous route 3 times every week at the same time on the same 3 days at least 48 hours apart. 44 MCG - Active Glucosamine-Chondroi tin-MSM (with antiox) 500 mg-500 mg-66.7 mg tablet - Active SUPER CALCIUM (unknown strength) Not Available - Active Advance Directives Directive Yes / No Effective Date File Name No Information Encounters Encounter Description Practice Location Reason(s) For Visit Diagnoses Date Provider Providers Copied on Encounter [facility], [address], [place], [address], [place] tel:[phone] [facility] Primary osteoarthritis of right kneePrimary osteoarthritis of left knee [address] [place], [place], [id number] . tel: [phone] Referring Provider: Brando Negron, [address] [place] [address], [id number] . tel:[phone] Family History Family Member Type Diagnosis Age At Onset Father Problem (finding) malignant neoplasm of l iver Mother Problem (finding) Alive and well Father Problem (finding) Payers Payer name Insurance type Covered alliance party ID Authorherminioa tilauren(s) No Information Social History Type Description Quantity Date Captured Comments Alcohol Use Details Unknown Caffeine Use Details Unknown Tobacco Use Status Current non-smoker 20 Smoking Status Never smoker Non-Smoking Tobacco Use Details : No Details Available : No Details Available Sex Female Vital Signs Date / Time: Height Weight BMI Pulse Rate Blood Pressure Temperature Respiratory Rate Body Surface Area Head Circumference Head Circ. Percentile Wt./Cole. Percentile BMI percentile Pulse Ox Inhaled Ox 10:45 AM 73.00 in 90.718 kg (200.00 lbs) 26.3 9 kg/m eter (2) 132/86 mm[Hg] Chief Complaint And Reason For Visit No Information Reason For Referral Reason For Referral No Information Plan Of Treatment Date Type Action Status Referral Ordered: RADEX KNE COMPL 4/MORE VIEWS LT ordered Referral Ordered: RADEX KNE COMPL 4/MORE VIEWS RT ordered History Of Present Illness Encounter Date Complaint History Of Prese nt Illness No Information Functional Status Date Functional Assessmen t No Information Instructions Date Instruction Additional Infor mation No Information Assessments Type Assessment Date assessment Primary osteoarthritis of right knee assessment Primary osteoarthritis of left k nee Patient Care Teams Name Effective Dates (start - stop) Status Members No Information
--- OUTSIDE RECORDS SUMMARY | 2024-09-07 10:59 | XMS_ITS | Encounter Summary ---
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
--- OUTSIDE RECORDS SUMMARY | 2024-09-07 10:59 | XMS_ITS | Clinical Summary ---
Author Organization [facility] Address [facility] [place] [address] Care Team Providers Care Supply Assistant Name Role Phone Brando Gan MD Primary Care Provider Social History Tobacco Use Types Packs/Day Years Used Date Smoking Tobacco: Never Assessed Comments No Sex and Gender Information Value Date Recorded Sex Assigned at Not on file Legal Sex Female 9:46 PM ARCHITECTURE DRAFTER Gender Identity Not on file Sexual Orientation Not on file Last Filed Vital Signs Vital Sign Reading Time Taken Comments Blood Pressure - - Pulse - - Temperature - - Respiratory Rate - - Oxygen Saturation - - Inhaled Oxygen Concentration - - Weight 90.7 kg (200 lb) 07/26/2017 2:07 PM ARCHITECTURE DRAFTER Height 185.4 cm (6' 1 ) 07/26/2017 2:07 PM ARCHITECTURE DRAFTER Body Mass Index 26.39 07/26/2017 2:07 PM ARCHITECTURE DRAFTER Plan of Treatment Health Maintenance Due Date Last Done Comments Cervical Cancer Screening Pap Smear (Age 30 to 64) Every 3 Years 1961 Colorectal Cancer Screening Colonoscopy (10 Years) 1961 Annual Physical 01/18/1964 Hepatitis C 1979 DTaP, Tdap and Td Vaccines (1 - Tdap) 01/18/1980 Cervical Cancer Screening Pap with HPV Testing (Age 30 to 64) Every 5 Years 1991 Cervical Cancer Screening with HPV 1991 Zoster Vaccines (1 of 2) 2011 COVID-19 Vaccine ( - season) 2024 Influenza Adult (#1) 2024 Mammogram Screening 05/27/2026 05/27/2024, 05/25/2023, 05/12/2022, Additional history exists RSV Immunization or 60+ Years (1 - 1-dose 75+ series) 01/18/2036 Meningococcal B Vaccine Aged Out No l onger eligible based on patient's age to complete this topic Meningococcal Vaccine Aged Out No felipa niru eligible based on patient's age to complete this topic Pneumococcal Vaccine: Pediatrics (0 to 5 Years) and At-Risk Patients (6 to 64 Years) Aged Out No longer eligible based on patient's age to complete this topic RSV Immunizations Under 20 Months Aged Out No longer eligible based on patient's age to complete this topic Procedures Procedure Name Priority Date/Time Associated Diagnosis Comments MG SCREENING W RENETTA KIMO DIGI Routine 05/27/2024 8:51 AM ARCHITECTURE DRAFTER Encounter for screening mammogram for malignant neoplasm of breast from Last 3 Months or Most Recently Relevant to Health Maintenance Results * MG SCREENING W RENETTA KIMO DIGI (05/27/2024 8:51 AM ARCHITECTURE DRAFTER) Anatomical Region Laterality Modality Breast Bilateral Mammography 05/27/2024 1:26 PM ARCHITECTURE DRAFTER Impressions 05/27/2024 1:27 PM ARCHITECTURE DRAFTER IMPRESSION: No suspicious change since the previous exams. Recommendation: 1: Routine Screening Bilateral in 1 Year Assessment: ACR BI-RADS 2 - BENIGN FINDING(S) Ordered By: BRANDO GAN Interpreted By: Jeremías Sinha MD, 05/27/2024 1:26 PM Narrative 05/27/2024 1:27 PM ARCHITECTURE DRAFTER [address] [place] [address] Examination: Digital screening mammogram with CAD. Clinical history: Asymptomatic patient presents for routine screening. Comparison: 05/25/2023, 05/12/2022, 02/25/2021, 09/03/2019. Technique: Bilateral digital mammograms. The exam was interpreted with the use of a computer-aided detection (CAD) system. Additional 3-D tomosynthesis images were acquired. Tissue density: The breasts are heterogeneously dense which may obscure small masses. Findings: The breast tissue is heterogeneously dense. The dense tissue may obscure some lesions mammographically. Glandular asymmetry remains evident. Benign-appearing calcification noted. No suspicious mass, microcalcification or area of architectural distortion can be identified. From a mammographic standpoint, routine followup in one year would seem adequate. Brando Gan MD MAMMO Final Resul t from Last 3 Months or Most Recently Relevant to Health Maintenance Insurance [employer] OPEN ACCESS [facility] [employer] OPEN ACCESS [facility] Care Teams Supply Assistant Relationship Specialty Start Date End Date Brando Gan MD [address] [place] [phone] PCP - General FAMILY PRACTICE 03/28/19
--- OUTSIDE RECORDS SUMMARY | 2024-09-07 10:59 | XMS_ITS | Referral Summary ---
Author Organization [facility] Address [address] [place] [phone] Care Team Providers Care Benefits Assistant Name Role Phone Brando Negron MD Primary Care Provider Encounters Date Type Department Care Team Description 09/04/2024 Telephone [facility] Multiple Sclerosis [address] [place] [phone] Jen Mcwilliams MD 08/20/2024 5:43 PM APPLIED BIOLOGY PROFESSOR - 08/20/2024 11:59 PM APPLIED BIOLOGY PROFESSOR Hospital Encounter [facility] [address] [place] [phone] Jen Mcwilliams MD Multiple sclerosis (HCC) Discharge Disposition: Discharge to home or self care 07/24/2024 9:42 AM APPLIED BIOLOGY PROFESSOR - 07/24/2024 11:59 PM APPLIED BIOLOGY PROFESSOR Hospital Encounter [facility] Radiology [address] [place] [address] Jen Mcwilliams MD Multiple sclerosis (HCC) Discharge Disposition: Discharge to home or self care 07/02/2024 4:30 PM APPLIED BIOLOGY PROFESSOR Lab [facility] [address] [place] [phone] Multiple sclerosis (HCC); Vitamin D deficiency; High risk medication use 07/02/2024 3:00 PM APPLIED BIOLOGY PROFESSOR Office Visit [facility] Multiple Sclerosis [address] [place] [address] Medicine 7[address] [place] [phone] Jen Mcwilliams MD High risk medication use (Primary Dx); Multiple sclerosis (HCC); Vitamin D deficiency from Last 3 Months Allergies Active Allergy Reactions Criticality Noted Date [...] Noted Date Diagnosed Date Multiple sclerosis 10/29/2023 Social History Tobacco Use Types Packs/Day Years [...] on file Legal Sex Female 3:48 PM APPLIED BIOLOGY PROFESSOR Gender Identity Not on file Sexual Orientation Not on file Last Filed Vital Signs Vital Sign Reading Time Taken Comments Blood Pressure 165/94 07/02/2024 2:52 PM APPLIED BIOLOGY PROFESSOR Pulse 87 07/02/2024 2:52 PM APPLIED BIOLOGY PROFESSOR Temperature - - Respiratory Rate - - Oxygen Saturation - - Inhaled Oxygen Concentration - - Weight 88.5 kg (195 lb) 08/20/2024 5:48 PM APPLIED BIOLOGY PROFESSOR Height 185.4 cm (6' 1 ) 08/20/2024 5:48 PM APPLIED BIOLOGY PROFESSOR Body Mass Index 25.73 08/20/2024 5:48 PM APPLIED BIOLOGY PROFESSOR Plan of Treatment Not on file Procedures Procedure Name Priority Date/Time Associated Diagnosis Comments MRI THORACIC SPINE W WO CONTRAST Schedule Routine, Read Routine (OP Routine) 08/20/2024 7:24 PM APPLIED BIOLOGY PROFESSOR Multiple sclerosis (HCC) MRI CERVICAL SPINE W WO CONTRAST Schedule Routine, Read Routine (OP Routine) 08/20/2024 7:24 PM APPLIED BIOLOGY PROFESSOR Multiple sclerosis (HCC) MRI MS BRAIN 3T PROTOCOL W WO CONTRAST Routine 07/24/2024 10:35 AM APPLIED BIOLOGY PROFESSOR Multiple sclerosis (HCC) EGFR Routine 07/02/2024 4:00 PM APPLIED BIOLOGY PROFESSOR Multiple sclerosis (HCC) High risk medication use DIFFERENTIAL AUTO Routine 07/02/2024 4:0 0 PM APPLIED BIOLOGY PROFESSOR Multiple sclerosis (HCC) High risk medication use CBC WITH AUTO DIFFERENTIAL Routine 07/02/2024 4:00 PM APPLIED BIOLOGY PROFESSOR Multiple sclerosis (HCC) High risk medication use COMPREHENSIVE METABOLIC PANEL Routine 07/02/2024 4:00 PM APPLIED BIOLOGY PROFESSOR Multiple sclerosis (HCC) High risk medication use VITAMIN D 25 HYDROXY Routine 07/02/2024 4:00 PM APPLIED BIOLOGY PROFESSOR Multiple sclerosis (HCC) Vitamin D deficiency from Last 3 Months Results * MRI Thoracic Spine W WO Contrast (08/20/2024 7:24 PM APPLIED BIOLOGY PROFESSOR) Anatomical Region Laterality Modality Spine N/A Magnetic Resonan ce 08/21/2024 11:0 0 AM APPLIED BIOLOGY PROFESSOR Impressions 08/21/2024 11:53 AM APPLIED BIOLOGY PROFESSOR 1. T2 hyperintense lesion in the ventral [...] Paulina Hudson M.D. Narrative 08/21/2024 11:53 AM APPLIED BIOLOGY PROFESSOR EXAMINATION: 1. Magnetic resonance imaging (MRI) of [...] intravenous contrast using the standard protocol. Scanner: [facility] Field Strength: 3T Contrast information: 20 [...] intravenous contrast using the standard protocol. Scanner: [facility] Field Strength: 3T Contrast information: 20 [...] Spine W WO Contrast (08/20/2024 7:24 PM APPLIED BIOLOGY PROFESSOR) Anatomical Region Laterality Modality Spine N/A Magnetic Resonan ce 08/21/2024 11:0 0 AM APPLIED BIOLOGY PROFESSOR Impressions 08/21/2024 11:53 AM APPLIED BIOLOGY PROFESSOR 1. T2 hyperintense lesion in the ventral [...] Paulina Hudson M.D. Narrative 08/21/2024 11:53 AM APPLIED BIOLOGY PROFESSOR EXAMINATION: 1. Magnetic resonance imaging (MRI) of [...] not present on distant comparison exam from 2009. No active demyelination or enhancement. 2. No [...] Paulina Hudson M.D. us Jen Mcwilliams MD IMG MRI PROCEDURES Final Result * MRI MS Brain 3T Protocol W WO Contrast (07/24/2024 10:35 AM APPLIED BIOLOGY PROFESSOR) Anatomical Region Laterality Modality Head and Neck N/A Magnetic Resonan ce 07/24/2024 11:2 1 AM APPLIED BIOLOGY PROFESSOR Impressions 07/24/2024 12:05 PM APPLIED BIOLOGY PROFESSOR Approximately 5 new small white matter lesions since 2019 exam, given differences in technique limiting precise comparison. Enhancing Lesions: None Other significant findings: None Dictated by: Donavon Gloria M.D. The radiology attending physician has personally reviewed this study, and had reviewed and/or edited this written report and agrees with it. Electronically signed by: Michael Wood M.D. Narrative 07/24/2024 12:05 PM APPLIED BIOLOGY PROFESSOR EXAMINATION: Magnetic resonance imaging (MRI) of the [...] : None Enhancing Brain Lesions: None T2/FLAIR [place] of Disease: Mild, less than 10 typical [...] : None Enhancing Brain Lesions: None T2/FLAIR [place] of Disease: Mild, less than 10 typical [...] it. Electronically signed by: Michael Wood M.D. Jen Mcwilliams MD [facility] MRI PROCEDURES Final Result * eGFR (07/02/2024 4:00 PM APPLIED BIOLOGY PROFESSOR) eGFR 82 >=60 mL/min/1. 73 m2 Comment: [...] last reviewed 2021. Blood 07/02/2024 4:00 PM APPLIED BIOLOGY PROFESSOR 07/02/2024 4:12 PM APPLIED BIOLOGY PROFESSOR us Jen Mcwilliams MD LAB BLOOD ORDERABLES Final Resul t [facility] Department [place] [address] * Differential, auto (07/02/2024 4:00 PM APPLIED BIOLOGY PROFESSOR) Neutrophil abs 2.7 1.5 - 6.5 K/cumm Imm gran abs 0.0 0.0 - 0.1 K/cumm [facility] Lymphocyte abs 1.6 0.8 - 3.3 K/cumm [facility] Monocyte abs 0.4 0.2 - 0.8 K/cumm [facility] Eosinophil abs 0.1 0.0 - 0.5 K/cumm [facility] Basophil abs 0.0 0.0 - 0.1 K/cumm [facility] Neutrophil pct 56.9 % [facility] Comment: Interpretive Data Percent cell count reference ranges are not reported, since discordance with absolute values may lead to misinterpretation of CBC data. Current Interpretive Data was last revised on 2017. Imm gran pct 0.2 % [facility] Comment: Interpretive Data Percent cell count reference ranges are not reported, since discordance with absolute values may lead to misinterpretation of CBC data. Current Interpretive Data was last revised on 2017. Lymphocyte pct 32.8 % [facility] Comment: Interpretive Data Percent cell count reference ranges are not reported, since discordance with absolute values may lead to misinterpretation of CBC data. Current Interpretive Data was last revised on 2017. Monocyte pct 7.8 % [facility] Comment: Interpretive Data Percent cell count reference ranges are not reported, since discordance with absolute values may lead to misinterpretation of CBC data. Current Interpretive Data was last revised on 2017. Eosinophil pct 1.9 % [facility] Comment: Interpretive Data Percent cell count reference ranges are not reported, since discordance with absolute values may lead to misinterpretation of CBC data. Current Interpretive Data was last revised on 2017. Basophil pct 0.4 % [facility] Comment: Interpretive Data Percent cell count reference ranges are not reported, since discordance with absolute values may lead to misinterpretation of CBC data. Current Interpretive Data was last revised on 2017. Blood 07/02/2024 4:00 PM APPLIED BIOLOGY PROFESSOR 07/02/2024 4:09 PM APPLIED BIOLOGY PROFESSOR us Jen Mcwilliams MD LAB BLOOD ORDERABLES Final Resul t [facility] Department [place] [address] * (ABNORMAL) CBC with auto differential (07/02/2024 4:00 PM APPLIED BIOLOGY PROFESSOR) WBC 4.8 3.8 - 9.9 K/cumm Hgb 11.7(L) 11.9 - 15.5 g/dL [facility] Hct 36.1 35.6 - 45.5 % [facility] Plt 107(L) 150 - 400 K/cumm [facility] MPV 12.2 9.1 - 12.3 fL [facility] RBC 4.21 3.90 - 5.20 M/cumm [facility] MCV 85.7 81.3 - 96.4 fL [facility] MCH 27.8 27.1 - 33.3 pg [facility] MCHC 32.4 32.3 - 35.7 g/dL [facility] RDW CV 14.2 11.1 - 14.9 % [facility] RDW SD 43.8 35.7 - 48.1 fL [facility] NRBC abs 0.00 0.00 - 0.01 K/cumm [facility] Blood 07/02/2024 4:00 PM APPLIED BIOLOGY PROFESSOR 07/02/2024 4:09 PM APPLIED BIOLOGY PROFESSOR Jen Mcwilliams MD LAB BLOOD ORDERABLES Final Resul t Performing Organization Address [facility] de Phone Number [facility] [place] [address] * Vitamin D 25 hydroxy (07/02/2024 4:00 PM APPLIED BIOLOGY PROFESSOR) Vitamin D 25-OH 39 30 - 80 ng/mL Blood 07/02/2024 4:00 PM APPLIED BIOLOGY PROFESSOR 07/02/2024 4:08 PM APPLIED BIOLOGY PROFESSOR Jen Mcwilliams MD LAB BLOOD ORDERABLES Final Resul t Performing Organization Address [facility] de Phone Number [facility] [place] [address] * Comprehensive metabolic panel (07/02/2024 4:00 PM APPLIED BIOLOGY PROFESSOR) [facility] Sodium 138 135 - 145 mmol/L Potassium, pl 4.3 3.3 - 4.9 mmol/L [facility] Chloride 103 97 - 110 mmol/L [facility] CO2 27 22 - 32 mmol/L [facility] Anion gap 8 2 - 15 mmol/L [facility] BUN 17 6 - 25 mg/dL [facility] Creatinine 0.81 0.60 - 1.10 mg/dL [facility] Glucose 94 70 - 199 mg/dL [facility] Comment: Interpretive Data Fasting glucose [...] classification and Diagnosis of Diabetes Diabetes Care 2021; 46: S19-S40. Current interpretive data was last revised 2022. Calcium 9.6 8.5 - 10.3 mg/dL [facility] Bilirubin, total 0.5 0.1 - 1.2 mg/dL [facility] Protein, pl 7.9 6.5 - 8.5 g/dL [facility] Albumin 4.5 3.5 - 5.0 g/dL [facility] Alk phos 105 40 - 130 Units/L [facility] ALT 25 7 - 45 Units/L [facility] AST 35 10 - 45 Units/L [facility] Blood 07/02/2024 4:00 PM APPLIED BIOLOGY PROFESSOR 07/02/2024 4:08 PM APPLIED BIOLOGY PROFESSOR us Jen Mcwilliams MD LAB BLOOD ORDERABLES Final Resul t [facility] Department of Laboratories [place] [phone] from Last 3 Months Insurance [facility] [id number] [facility] [facility] [facility] [id number] Care Teams Benefits Assistant Relationship Specialty Start Date End Date Brando Negron MD [address] [place] [phone] PCP - General Family Medicine 04/29/24
[2024-09-07 11:01] VITALS: BP 188/97; PULSE 83; RESP 18; TEMP 36.8; O2SAT 100
--- OUTSIDE RECORDS SUMMARY | 2024-09-07 13:09 | XMS_ITS | Clinical Summary ---
Author Organization [facility] Address [facility] [place] [address] Care Team Providers Care Cooler Worker Name Role Phone Brando Gan MD Primary Care Provider [phone] Social History Tobacco Use Types Packs/Day Years Used Date Smoking Tobacco: Never Assessed Comments No Sex and Gender Information Value Date Recorded Sex Assigned at Not on file Legal Sex Female 9:46 PM BULL RIDER Gender Identity Not on file Sexual Orientation Not on file Last Filed Vital Signs Vital Sign Reading Time Taken Comments Blood Pressure - - Pulse - - Temperature - - Respiratory Rate - - Oxygen Saturation - - Inhaled Oxygen Concentration - - Weight 90.7 kg (200 lb) 07/26/2017 2:07 PM BULL RIDER Height 185.4 cm (6' 1 ) 07/26/2017 2:07 PM BULL RIDER Body Mass Index 26.39 07/26/2017 2:07 PM BULL RIDER Plan of Treatment Health Maintenance Due Date [...] RENETTA KIMO DIGI Routine 05/27/2024 8:51 AM BULL RIDER Encounter for screening mammogram for malignant neoplasm of breast from Last 3 Months or Most Recently Relevant to Health Maintenance Results * MG SCREENING W RENETTA KIMO DIGI (05/27/2024 8:51 AM BULL RIDER) Anatomical Region Laterality Modality Breast Bilateral Mammography 05/27/2024 1:26 PM BULL RIDER Impressions 05/27/2024 1:27 PM BULL RIDER IMPRESSION: No suspicious change since the previous exams. Recommendation: 1: Routine Screening Bilateral in 1 Year Assessment: ACR BI-RADS 2 - BENIGN FINDING(S) Ordered By: BRANDO GAN Interpreted By: Jeremías Sinha MD, 05/27/2024 1:26 PM Narrative 05/27/2024 1:27 PM BULL RIDER [address] [place] [address] Examination: Digital screening mammogram with CAD. Clinical [...] Most Recently Relevant to Health Maintenance Insurance [employer] [facility] [employer] [facility] Care Teams Cooler Worker Relationship Specialty Start Date End Date Brando Gan MD [address] [place] [phone] PCP - General FAMILY PRACTICE 03/28/19
--- OUTSIDE RECORDS SUMMARY | 2024-09-07 13:09 | XMS_ITS | Encounter Summary ---
Author Organization [facility] Address [facility] [place] [address] Care Team Providers Care Sports Analyst Name Role Phone Brando Negron MD Primary Care Provider Encounter Details Date Type Department Care Team (Late st Contact Info) Description 12/01/2018 Abstract [facility] CONVERSION [address] [place] [address] , Generic Conversion, Social History Tobacco Use Types Packs/Day Years Used Date Smoking Tobacco: Never Assessed Comments Unknown Sex and Gender Information Value Date Recorded Sex Assigned at Not on file Legal Sex Female 9:46 PM CUSTOMS PORT DIRECTOR Gender Identity Not on file Sexual Orientation Not on file documented as of this encounter Plan of Treatment Not on file documented as of this encounter Visit Diagnoses Not on filedocumented in this encounter Care Teams Sports Analyst Relationship Specialty Start Date End Date Brando Negron MD [address] [place] [phone] PCP - General FAMILY PRACTICE 03/28/19 documented as of this encounter
--- OUTSIDE RECORDS SUMMARY | 2024-09-07 13:09 | XMS_ITS | Referral Summary ---
Author Organization [facility] Address [address] [place] [phone] Care Team Providers Care Slip Caster Name Role Phone Brando Negron MD Primary Care Provider Encounters Date Type Department Care Team Description 09/04/2024 Telephone [facility] Multiple Sclerosis [address] [place] [phone] Jen Mcwilliams MD 08/20/2024 5:43 PM EDUCATION PARAPROFESSIONAL - 08/20/2024 11:59 PM EDUCATION PARAPROFESSIONAL Hospital Encounter [facility] [address] [place] [phone] Jen Mcwilliams MD Multiple sclerosis (HCC) Discharge Disposition: Discharge to home or self care 07/24/2024 9:42 AM EDUCATION PARAPROFESSIONAL - 07/24/2024 11:59 PM EDUCATION PARAPROFESSIONAL Hospital Encounter [facility] Radiology 1 [place] [address] Jen Mcwilliams MD Multiple sclerosis (HCC) Discharge Disposition: Discharge to home or self care 07/02/2024 4:30 PM EDUCATION PARAPROFESSIONAL Lab [facility] Advanced [facility] [address] [place] [phone] Multiple sclerosis (HCC); Vitamin D deficiency; High risk medication use 07/02/2024 3:00 PM EDUCATION PARAPROFESSIONAL Office Visit [facility] Multiple Sclerosis [address] [place] [address] Medicine 7th [place] [phone] Jen Mcwilliams MD High risk medication use [...] on file Legal Sex Female 3:48 PM EDUCATION PARAPROFESSIONAL Gender Identity Not on file Sexual Orientation Not on file Last Filed Vital Signs Vital Sign Reading Time Taken Comments Blood Pressure 165/94 07/02/2024 2:52 PM EDUCATION PARAPROFESSIONAL Pulse 87 07/02/2024 2:52 PM EDUCATION PARAPROFESSIONAL Temperature - - Respiratory Rate - - Oxygen Saturation - - Inhaled Oxygen Concentration - - Weight 88.5 kg (195 lb) 08/20/2024 5:48 PM EDUCATION PARAPROFESSIONAL Height 185.4 cm (6' 1 ) 08/20/2024 5:48 PM EDUCATION PARAPROFESSIONAL Body Mass Index 25.73 08/20/2024 5:48 PM EDUCATION PARAPROFESSIONAL Plan of Treatment Not on file Procedures Procedure Name Priority Date/Time Associated Diagnosis Comments MRI THORACIC SPINE W WO CONTRAST Schedule Routine, Read Routine (OP Routine) 08/20/2024 7:24 PM EDUCATION PARAPROFESSIONAL Multiple sclerosis (HCC) MRI CERVICAL SPINE W WO CONTRAST Schedule Routine, Read Routine (OP Routine) 08/20/2024 7:24 PM EDUCATION PARAPROFESSIONAL Multiple sclerosis (HCC) MRI MS BRAIN 3T PROTOCOL W WO CONTRAST Routine 07/24/2024 10:35 AM EDUCATION PARAPROFESSIONAL Multiple sclerosis (HCC) EGFR Routine 07/02/2024 4:00 PM EDUCATION PARAPROFESSIONAL Multiple sclerosis (HCC) High risk medication use DIFFERENTIAL AUTO Routine 07/02/2024 4:0 0 PM EDUCATION PARAPROFESSIONAL Multiple sclerosis (HCC) High risk medication use CBC WITH AUTO DIFFERENTIAL Routine 07/02/2024 4:00 PM EDUCATION PARAPROFESSIONAL Multiple sclerosis (HCC) High risk medication use COMPREHENSIVE METABOLIC PANEL Routine 07/02/2024 4:00 PM EDUCATION PARAPROFESSIONAL Multiple sclerosis (HCC) High risk medication use VITAMIN D 25 HYDROXY Routine 07/02/2024 4:00 PM EDUCATION PARAPROFESSIONAL Multiple sclerosis (HCC) Vitamin D deficiency from Last 3 Months Results * MRI Thoracic Spine W WO Contrast (08/20/2024 7:24 PM EDUCATION PARAPROFESSIONAL) Anatomical Region Laterality Modality Spine N/A Magnetic Resonan ce 08/21/2024 11:0 0 AM EDUCATION PARAPROFESSIONAL Impressions 08/21/2024 11:53 AM EDUCATION PARAPROFESSIONAL 1. T2 hyperintense lesion in the ventral [...] Paulina Hudson M.D. Narrative 08/21/2024 11:53 AM EDUCATION PARAPROFESSIONAL EXAMINATION: 1. Magnetic resonance imaging (MRI) of [...] intravenous contrast using the standard protocol. Scanner: [facility] Field Strength: 3T Contrast information: 20 mL [...] intravenous contrast using the standard protocol. Scanner: [facility] Field Strength: 3T Contrast information: 20 mL [...] Spine W WO Contrast (08/20/2024 7:24 PM EDUCATION PARAPROFESSIONAL) Anatomical Region Laterality Modality Spine N/A Magnetic Resonan ce 08/21/2024 11:0 0 AM EDUCATION PARAPROFESSIONAL Impressions 08/21/2024 11:53 AM EDUCATION PARAPROFESSIONAL 1. T2 hyperintense lesion in the ventral [...] Paulina Hudson M.D. Narrative 08/21/2024 11:53 AM EDUCATION PARAPROFESSIONAL EXAMINATION: 1. Magnetic resonance imaging (MRI) of [...] Protocol W WO Contrast (07/24/2024 10:35 AM EDUCATION PARAPROFESSIONAL) Anatomical Region Laterality Modality Head and Neck N/A Magnetic Resonan ce 07/24/2024 11:2 1 AM EDUCATION PARAPROFESSIONAL Impressions 07/24/2024 12:05 PM EDUCATION PARAPROFESSIONAL Approximately 5 new small white matter lesions since 2019 exam, given differences in technique limiting precise comparison. Enhancing Lesions: None Other significant findings: None Dictated by: Donavon Gloria M.D. The radiology attending physician has personally reviewed this study, and had reviewed and/or edited this written report and agrees with it. Electronically signed by: Michael Wood M.D. Narrative 07/24/2024 12:05 PM EDUCATION PARAPROFESSIONAL EXAMINATION: Magnetic resonance imaging (MRI) of the [...] : None Enhancing Brain Lesions: None T2/FLAIR [place] of Disease: Mild, less than 10 typical [...] : None Enhancing Brain Lesions: None T2/FLAIR [place] of Disease: Mild, less than 10 typical [...] by: Michael Wood M.D. Jen Mcwilliams MD [facility] [place] PROCEDURES Final Result * eGFR (07/02/2024 4:00 PM EDUCATION PARAPROFESSIONAL) eGFR 82 >=60 mL/min/1. 73 m2 Comment: [...] last reviewed 2021. Blood 07/02/2024 4:00 PM EDUCATION PARAPROFESSIONAL 07/02/2024 4:12 PM EDUCATION PARAPROFESSIONAL us Jen Mcwilliams MD LAB BLOOD ORDERABLES Final Resul t [facility] [place] [address] * Differential, auto (07/02/2024 4:00 PM EDUCATION PARAPROFESSIONAL) Neutrophil abs 2.7 1.5 - 6.5 K/cumm Imm gran abs 0.0 0.0 - 0.1 K/cumm [facility] Lymphocyte abs 1.6 0.8 - 3.3 K/cumm [facility] Monocyte abs 0.4 0.2 - 0.8 K/cumm [facility] Eosinophil abs 0.1 0.0 - 0.5 K/cumm [facility] Basophil abs 0.0 0.0 - 0.1 K/cumm [facility] Neutrophil pct 56.9 % [facility] Comment: Interpretive Data Percent cell count reference ranges are not reported, since discordance with absolute values may lead to misinterpretation of CBC data. Current Interpretive Data was last revised on 2017. Imm gran pct 0.2 % [facility] Comment: Interpretive Data Percent cell count reference ranges are not reported, since discordance with absolute values may lead to misinterpretation of CBC data. Current Interpretive Data was last revised on 2017. Lymphocyte pct 32.8 % [facility] Comment: Interpretive Data Percent cell count reference ranges are not reported, since discordance with absolute values may lead to misinterpretation of CBC data. Current Interpretive Data was last revised on 2017. Monocyte pct 7.8 % [facility] Comment: Interpretive Data Percent cell count reference ranges are not reported, since discordance with absolute values may lead to misinterpretation of CBC data. Current Interpretive Data was last revised on 2017. Eosinophil pct 1.9 % [facility] Comment: Interpretive Data Percent cell count reference ranges are not reported, since discordance with absolute values may lead to misinterpretation of CBC data. Current Interpretive Data was last revised on 2017. Basophil pct 0.4 % [facility] Comment: Interpretive Data Percent cell count reference ranges are not reported, since discordance with absolute values may lead to misinterpretation of CBC data. Current Interpretive Data was last revised on 2017. Blood 07/02/2024 4:00 PM EDUCATION PARAPROFESSIONAL 07/02/2024 4:09 PM EDUCATION PARAPROFESSIONAL us Jen Mcwilliams MD LAB BLOOD ORDERABLES Final Resul t [facility] [place] [address] * (ABNORMAL) CBC with auto differential (07/02/2024 4:00 PM EDUCATION PARAPROFESSIONAL) WBC 4.8 3.8 - 9.9 K/cumm Hgb 11.7(L) 11.9 - 15.5 g/dL [facility] Hct 36.1 35.6 - 45.5 % [facility] Plt 107(L) 150 - 400 K/cumm [facility] MPV 12.2 9.1 - 12.3 fL [facility] RBC 4.21 3.90 - 5.20 M/cumm [facility] MCV 85.7 81.3 - 96.4 fL [facility] MCH 27.8 27.1 - 33.3 pg [facility] MCHC 32.4 32.3 - 35.7 g/dL [facility] RDW CV 14.2 11.1 - 14.9 % [facility] RDW SD 43.8 35.7 - 48.1 fL [facility] NRBC abs 0.00 0.00 - 0.01 K/cumm [facility] Blood 07/02/2024 4:00 PM EDUCATION PARAPROFESSIONAL 07/02/2024 4:09 PM EDUCATION PARAPROFESSIONAL Jen Mcwilliams MD LAB BLOOD ORDERABLES Final Resul t Performing Organization Address [facility] de Phone Number [facility] [place] [address] * Vitamin D 25 hydroxy (07/02/2024 4:00 PM EDUCATION PARAPROFESSIONAL) Vitamin D 25-OH 39 30 - 80 ng/mL Blood 07/02/2024 4:00 PM EDUCATION PARAPROFESSIONAL 07/02/2024 4:08 PM EDUCATION PARAPROFESSIONAL Jen Mcwilliams MD LAB BLOOD ORDERABLES Final Resul t Performing Organization Address [facility] de Phone Number [facility] [place] [address] * Comprehensive metabolic panel (07/02/2024 4:00 PM EDUCATION PARAPROFESSIONAL) [facility] Sodium 138 135 - 145 mmol/L Potassium, pl 4.3 3.3 - 4.9 mmol/L [facility] Chloride 103 97 - 110 mmol/L [facility] CO2 27 22 - 32 mmol/L [facility] Anion gap 8 2 - 15 mmol/L [facility] BUN 17 6 - 25 mg/dL [facility] Creatinine 0.81 0.60 - 1.10 mg/dL [facility] Glucose 94 70 - 199 mg/dL [facility] Comment: Interpretive Data Fasting glucose >/= 126 [...] Calcium 9.6 8.5 - 10.3 mg/dL [facility] Bilirubin, total 0.5 0.1 - 1.2 mg/dL [facility] Protein, pl 7.9 6.5 - 8.5 g/dL [facility] Albumin 4.5 3.5 - 5.0 g/dL [facility] Alk phos 105 40 - 130 Units/L [facility] ALT 25 7 - 45 Units/L [facility] AST 35 10 - 45 Units/L [facility] Blood 07/02/2024 4:00 PM EDUCATION PARAPROFESSIONAL 07/02/2024 4:08 PM EDUCATION PARAPROFESSIONAL us Jen Mcwilliams MD LAB BLOOD ORDERABLES Final Resul t [facility] Department of Laboratories [place] [id number] from Last 3 Months Insurance [facility] [id number] [facility] [id number] Care Teams Slip Caster Relationship Specialty Start Date End Date Brando Negron MD [address] [place] [phone] PCP - General Family Medicine 04/29/24
--- OUTSIDE RECORDS SUMMARY | 2024-09-07 13:09 | XMS_ITS | Continuity of Care Document ---
Author Organization [facility] Address [address] [place] [address] Phone Care Team Providers Care Radiology Clerk Name Role Phone Tobin Frey MD Unavailable [...] Diagnoses Date Provider Providers Copied on Encounter [facility], [address], [place], [address], [place] tel:[phone] [facility] Primary osteoarthritis of right kneePrimary osteoarthritis of left knee [address] [place], [place], [id number] . tel: [phone] Referring Provider: Brando Negron, [address] [place] [address], [phone] . tel:[phone] Family History Family Member Type Diagnosis Age At Onset Father Problem (finding) malignant neoplasm of l iver Mother Problem (finding) Alive and well Father Problem (finding) Payers Payer name Insurance type Covered democrat ID Authorherminioa tilauren(s) No Information Social History [...]
--- OUTSIDE RECORDS SUMMARY | 2024-09-07 13:09 | XMS_ITS | Clinical Summary ---
Author Organization [facility] Address [address] [place] [phone] Care Team Providers Care Junior Business Analyst Name Role Phone Brando Negron MD [...] Type Department Care Team Description 09/04/2024 Telephone [facility] Multiple Sclerosis [address] [place] [phone] Jen Mcwilliams MD 08/20/2024 5:43 PM GENERAL ASSISTANT - 08/20/2024 11:59 PM GENERAL ASSISTANT Hospital Encounter [facility] [address] [place] [address] Jen Mcwilliams MD Multiple sclerosis (HCC) Discharge Disposition: Discharge to home or self care 07/24/2024 9:42 AM GENERAL ASSISTANT - 07/24/2024 11:59 PM GENERAL ASSISTANT Hospital Encounter [facility] Radiology 1 [facility] [place] [address] Jen Mcwilliams MD Multiple sclerosis (HCC) Discharge Disposition: Discharge to home or self care 07/02/2024 4:30 PM GENERAL ASSISTANT Lab [facility] [address] [place] [phone] Multiple sclerosis (HCC); Vitamin D deficiency; High risk medication use 07/02/2024 3:00 PM GENERAL ASSISTANT Office Visit [facility] Multiple Sclerosis [address] [facility] Advanced Medicine 7th [place] [phone] Jen Mcwilliams MD High risk medication use [...] on file Legal Sex Female 3:48 PM GENERAL ASSISTANT Gender Identity Not on file Sexual Orientation Not on file Obstetrics History Last Filed Vital Signs Vital Sign Reading Time Taken Comments Blood Pressure 165/94 07/02/2024 2:52 PM GENERAL ASSISTANT Pulse 87 07/02/2024 2:52 PM GENERAL ASSISTANT Temperature - - Respiratory Rate - - Oxygen Saturation - - Inhaled Oxygen Concentration - - Weight 88.5 kg (195 lb) 08/20/2024 5:48 PM GENERAL ASSISTANT Height 185.4 cm (6' 1 ) 08/20/2024 5:48 PM GENERAL ASSISTANT Body Mass Index 25.73 08/20/2024 5:48 PM GENERAL ASSISTANT Plan of Treatment Health Maintenance Due Date [...] Read Routine (OP Routine) 08/20/2024 7:24 PM GENERAL ASSISTANT Multiple sclerosis (HCC) MRI CERVICAL SPINE W WO CONTRAST Schedule Routine, Read Routine (OP Routine) 08/20/2024 7:24 PM GENERAL ASSISTANT Multiple sclerosis (HCC) MRI MS BRAIN 3T PROTOCOL W WO CONTRAST Routine 07/24/2024 10:35 AM GENERAL ASSISTANT Multiple sclerosis (HCC) EGFR Routine 07/02/2024 4:00 PM GENERAL ASSISTANT Multiple sclerosis (HCC) High risk medication use DIFFERENTIAL AUTO Routine 07/02/2024 4:0 0 PM GENERAL ASSISTANT Multiple sclerosis (HCC) High risk medication use CBC WITH AUTO DIFFERENTIAL Routine 07/02/2024 4:00 PM GENERAL ASSISTANT Multiple sclerosis (HCC) High risk medication use COMPREHENSIVE METABOLIC PANEL Routine 07/02/2024 4:00 PM GENERAL ASSISTANT Multiple sclerosis (HCC) High risk medication use VITAMIN D 25 HYDROXY Routine 07/02/2024 4:00 PM GENERAL ASSISTANT Multiple sclerosis (HCC) Vitamin D deficiency from Last 3 Months Results * MRI Thoracic Spine W WO Contrast (08/20/2024 7:24 PM GENERAL ASSISTANT) Anatomical Region Laterality Modality Spine N/A Magnetic Resonan ce 08/21/2024 11:0 0 AM GENERAL ASSISTANT Impressions 08/21/2024 11:53 AM GENERAL ASSISTANT 1. T2 hyperintense lesion in the ventral [...] Paulina Hudson M.D. Narrative 08/21/2024 11:53 AM GENERAL ASSISTANT EXAMINATION: 1. Magnetic resonance imaging (MRI) of [...] intravenous contrast using the standard protocol. Scanner: [facility] Field Strength: 3T Contrast information: 20 mL [...] intravenous contrast using the standard protocol. Scanner: [facility] Field Strength: 3T Contrast information: 20 mL [...] Spine W WO Contrast (08/20/2024 7:24 PM GENERAL ASSISTANT) Anatomical Region Laterality Modality Spine N/A Magnetic Resonan ce 08/21/2024 11:0 0 AM GENERAL ASSISTANT Impressions 08/21/2024 11:53 AM GENERAL ASSISTANT 1. T2 hyperintense lesion in the ventral [...] Paulina Hudson M.D. Narrative 08/21/2024 11:53 AM GENERAL ASSISTANT EXAMINATION: 1. Magnetic resonance imaging (MRI) of [...] intravenous contrast using the standard protocol. Scanner: [facility] Field Strength: 3T Contrast information: 20 mL [...] Protocol W WO Contrast (07/24/2024 10:35 AM GENERAL ASSISTANT) Anatomical Region Laterality Modality Head and Neck N/A Magnetic Resonan ce 07/24/2024 11:2 1 AM GENERAL ASSISTANT Impressions 07/24/2024 12:05 PM GENERAL ASSISTANT Approximately 5 new small white matter lesions since 2019 exam, given differences in technique limiting precise comparison. Enhancing Lesions: None Other significant findings: None Dictated by: Donavon Gloria M.D. The radiology attending physician has personally reviewed this study, and had reviewed and/or edited this written report and agrees with it. Electronically signed by: Michael Wood M.D. Narrative 07/24/2024 12:05 PM GENERAL ASSISTANT EXAMINATION: Magnetic resonance imaging (MRI) of the [...] : None Enhancing Brain Lesions: None T2/FLAIR [place] of Disease: Mild, less than 10 typical [...] : None Enhancing Brain Lesions: None T2/FLAIR [place] of Disease: Mild, less than 10 typical [...] Final Result * eGFR (07/02/2024 4:00 PM GENERAL ASSISTANT) eGFR 82 >=60 mL/min/1. 73 m2 Comment: [...] last reviewed 2021. Blood 07/02/2024 4:00 PM GENERAL ASSISTANT 07/02/2024 4:12 PM GENERAL ASSISTANT us Jen Mcwilliams MD LAB BLOOD ORDERABLES Final Resul t [facility] [place] [address] * Differential, auto (07/02/2024 4:00 PM GENERAL ASSISTANT) Neutrophil abs 2.7 1.5 - 6.5 K/cumm Imm gran abs 0.0 0.0 - 0.1 K/cumm [facility] Lymphocyte abs 1.6 0.8 - 3.3 K/cumm [facility] Monocyte abs 0.4 0.2 - 0.8 K/cumm [facility] Eosinophil abs 0.1 0.0 - 0.5 K/cumm [facility] Basophil abs 0.0 0.0 - 0.1 K/cumm [facility] Neutrophil pct 56.9 % [facility] Comment: Interpretive Data Percent cell count reference ranges are not reported, since discordance with absolute values may lead to misinterpretation of CBC data. Current Interpretive Data was last revised on 2017. Imm gran pct 0.2 % [facility] Comment: Interpretive Data Percent cell count reference ranges are not reported, since discordance with absolute values may lead to misinterpretation of CBC data. Current Interpretive Data was last revised on 2017. Lymphocyte pct 32.8 % [facility] Comment: Interpretive Data Percent cell count reference ranges are not reported, since discordance with absolute values may lead to misinterpretation of CBC data. Current Interpretive Data was last revised on 2017. Monocyte pct 7.8 % [facility] Comment: Interpretive Data Percent cell count reference ranges are not reported, since discordance with absolute values may lead to misinterpretation of CBC data. Current Interpretive Data was last revised on 2017. Eosinophil pct 1.9 % [facility] Comment: Interpretive Data Percent cell count reference ranges are not reported, since discordance with absolute values may lead to misinterpretation of CBC data. Current Interpretive Data was last revised on 2017. Basophil pct 0.4 % [facility] Comment: Interpretive Data Percent cell count reference ranges are not reported, since discordance with absolute values may lead to misinterpretation of CBC data. Current Interpretive Data was last revised on 2017. Blood 07/02/2024 4:00 PM GENERAL ASSISTANT 07/02/2024 4:09 PM GENERAL ASSISTANT us Jen Mcwilliams MD LAB BLOOD ORDERABLES Final Resul t [facility] [place] [address] * (ABNORMAL) CBC with auto differential (07/02/2024 4:00 PM GENERAL ASSISTANT) [facility] WBC 4.8 3.8 - 9.9 K/cumm Hgb 11.7(L) 11.9 - 15.5 g/dL [facility] Hct 36.1 35.6 - 45.5 % [facility] Plt 107(L) 150 - 400 K/cumm [facility] MPV 12.2 9.1 - 12.3 fL [facility] RBC 4.21 3.90 - 5.20 M/cumm [facility] MCV 85.7 81.3 - 96.4 fL [facility] MCH 27.8 27.1 - 33.3 pg [facility] MCHC 32.4 32.3 - 35.7 g/dL [facility] RDW CV 14.2 11.1 - 14.9 % [facility] RDW SD 43.8 35.7 - 48.1 fL [facility] NRBC abs 0.00 0.00 - 0.01 K/cumm [facility] Blood 07/02/2024 4:00 PM GENERAL ASSISTANT 07/02/2024 4:09 PM GENERAL ASSISTANT us Jen Mcwilliams MD LAB BLOOD ORDERABLES Final Resul t Performing Organization Address City/[facility]/ZIP Co de Phone Number [facility] [place] [address] * Vitamin D 25 hydroxy (07/02/2024 4:00 PM GENERAL ASSISTANT) [facility] Vitamin D 25-OH 39 30 - 80 ng/mL Blood 07/02/2024 4:00 PM GENERAL ASSISTANT 07/02/2024 4:08 PM GENERAL ASSISTANT us Jen Mcwilliams MD LAB BLOOD ORDERABLES Final Resul t Performing Organization Address City/[facility]/ZIP Co de Phone Number [facility] [place] [address] * Comprehensive metabolic panel (07/02/2024 4:00 PM GENERAL ASSISTANT) Sodium 138 135 - 145 mmol/L Potassium, pl 4.3 3.3 - 4.9 mmol/L [facility] Chloride 103 97 - 110 mmol/L [facility] CO2 27 22 - 32 mmol/L [facility] Anion gap 8 2 - 15 mmol/L [facility] BUN 17 6 - 25 mg/dL [facility] Creatinine 0.81 0.60 - 1.10 mg/dL [facility] Glucose 94 70 - 199 mg/dL [facility] Comment: Interpretive Data Fasting glucose >/= 126 [...] 2022. Calcium 9.6 8.5 - 10.3 mg/dL [facility] Bilirubin, total 0.5 0.1 - 1.2 mg/dL [facility] Protein, pl 7.9 6.5 - 8.5 g/dL [facility] Albumin 4.5 3.5 - 5.0 g/dL [facility] Alk phos 105 40 - 130 Units/L [facility] ALT 25 7 - 45 Units/L [facility] AST 35 10 - 45 Units/L [facility] Blood 07/02/2024 4:00 PM GENERAL ASSISTANT 07/02/2024 4:08 PM GENERAL ASSISTANT us Jen Mcwilliams MD LAB BLOOD ORDERABLES Final Resul t [facility] [place] [address] from Last 3 Months Insurance [facility] [id number] [facility] [id number] Care Teams Junior Business Analyst Relationship Specialty Start Date End Date Brando Negron MD [address] [place] [phone] PCP - General Family Medicine 04/29/24
[2024-09-07 13:22] LABS: Basophils Percent Auto 0.2 % (0.2-1.2); Eosinophils Percent Auto 0.4 % (0-4.4); Hematocrit 36.8 % (37.0-47.0); Hemoglobin 12.1 g/dL (12.0-15.0); Immature Granulocyte Absolute 0.01 K/mm3 (0.00-0.031); Immature Granulocyte Percent A 0.2 % (0-0.5); Lymphocytes Absolute Auto 0.73 K/mm3 (0.9-3.2); Lymphocytes Percent Auto 15.5 % (18.3-44.2); Mean Corpuscular HGB Conc 32.9 g/dl (32-36); Mean Corpuscular Hemoglobin 28.1 pg (26-34); Mean Corpuscular Volume 85.6 fl (80-100); Mean Platelet Volume 12.1 fl (7.4-10.4); Monocytes Absolute Auto 0.3 K/mm3 (0.1-0.6); Neutrophils Absolute Auto 3.6 K/mm3 (1.3-6.7); Neutrophils Percent Auto 76.7 % (45.5-73.1); Platelet Count Result 102 k/mm3 (150-375); Red Cell Distribution Width 13.6 % (11.5-14.5); White Blood Count 4.7 K/mm3 (4.5-10.0)
[2024-09-07 13:23] LABS: Add Urine Microscopic? NO; Appearance Urine Clear (Clear); Bilirubin Urine Negative (Negative); Blood Urine Negative (Negative); Color Urine Yellow (Yellow); Glucose Urine UA Negative (Negative); Ketones Urine Negative (Negative); Leukocyte Esterase Ur Negative LEU/UL (Negative); Nitrate Urine Negative (Negative); Protein Urine Negative (Negative); Urobilinogen Urine 0.2 mg/dL (<2.0)
--- NOTE | 2024-09-07 13:24 | ED.GENADULT ---
HPI - General Adult General Chief complaint: Abdominal Pain Stated complaint: abdominal pain Time Seen by Provider: 09/07/24 13:01 History of Present Illness HPI narrative: 64-year-old female present to the emergency department for evaluation for periumbilical abdominal pain. Patient states she has had similar pain to this over the last few months. Patient began having more intense periumbilical abdominal pain last night where she described it felt like something burst and patient was having a tearing pain across her abdominal wall pain. Patient does have prior history of MS. Patient denies any recent abdominal surgeries P Related Data Allergies Allergy/AdvReac Type Severity Reaction Status Date / Time codeine Allergy Unknown UNKNOWN Verified 09/07/24 10:57 GENERIC PREDNISONE Allergy Intermediate HIVES Uncoded 09/07/24 10:57 Review of Systems Review of Systems: All systems reviewed & are unremarkable except as noted in HPI and below PMFSH Past Medical History Medical History (Updated 09/07/24 @ 14:57 by Arnie Dubose MD) Multiple sclerosis Exam Narrative: APPEARANCE: Well appearing HEAD: normocephalic, atraumatic. EYES: PERRLA/EOMI, conjunctivae clear. NOSE: Normal no drainage EARS:TMS clear with good light reflex. THROAT: Pharynx clear, no exudate. NECK: Supple. No adenopathy, no masses. RESPIRATORY: Airway patent, respirations nonlabored. Clear to auscultation bilaterally, no rales, rhonchi, wheezing. CARDIOVASCULAR: Regular rate and rhythm without murmurs rubs or gallops. ABDOMINAL: Periumbilical tenderness to palpation MUSCULOSKELETAL: Moves all extremities. Strength/ROM intact, No edema, No calf tenderness. NEURO: Alert. Cranial nerves II through XII intact. Grossly intact SKIN: Warm, dry. Normal Color Course Vital Signs Vital signs: Vital Signs Temperature 98.2 F 09/07/24 11:01 Pulse Rate 83 09/07/24 11:01 Respiratory Rate 18 09/07/24 11:01 Blood Pressure 188/97 H 09/07/24 11:01 Pulse Oximetry 100 09/07/24 11:01 Oxygen Delivery Room Air 09/07/24 11:01 Temperature 98.2 F 09/07/24 11:01 Pulse Rate 81 09/07/24 14:57 Respiratory Rate 14 09/07/24 14:57 Blood Pressure 180/100 H 09/07/24 14:57 Pulse Oximetry 100 09/07/24 14:57 Oxygen Delivery Room Air 09/07/24 11:01 Medical Decision Making [facility] Narrative Medical decision making narrative: 64-year-old female presents to the emergency department for evaluation for abdominal pain. Patient is currently afebrile with no leukocytosis and hemoglobin of 12.1. No significant acute abnormalities on the CMP UA was negative for infection negative hematuria. CT abdomen pelvis was ordered to evaluate for possible dissection. Patient does have reproducible abdominal wall tenderness to palpation. Possible early abdominal wall strain versus hernia. No evidence of incarcerated hernia. No other acute findings on CT scan. On re-evaluation patient does feel improved. Patient was encouraged close follow-up with primary care physician. Differential Diagnosis Differential Diagnosis: Colitis, diverticulitis, periumbilical hernia, gastritis, anxiety, depression Vital Signs Vital Signs: Vital Signs Temperature 98.2 F 09/07/24 11:01 Pulse Rate 83 09/07/24 11:01 Respiratory Rate 18 09/07/24 11:01 Blood Pressure 188/97 H 09/07/24 11:01 Pulse Oximetry 100 09/07/24 11:01 Oxygen Delivery Room Air 09/07/24 11:01 Temperature 98.2 F 09/07/24 11:01 Pulse Rate 81 09/07/24 14:57 Respiratory Rate 14 09/07/24 14:57 Blood Pressure 180/100 H 09/07/24 14:57 Pulse Oximetry 100 09/07/24 14:57 Oxygen Delivery Room Air 09/07/24 11:01 Lab Data Lab results reviewed: Yes I reviewed the patient's lab results. 09/07/24 13:15 09/07/24 13:15 Labs: Lab Results 09/07/24 Range/Units 13:15 WBC 4.7 (4.5-10.0) K/mm3 RBC 4.30 (4.2-5.4) M/mm3 Hgb 12.1 (12.0-15.0) g/dL Hct 36.8 L (37.0-47.0) % MCV 85.6 (80-100) fl MCH 28.1 (26-34) pg MCHC 32.9 (32-36) g/dl RDW 13.6 (11.5-14.5) % Plt Count 102 L (150-375) k/mm3 MPV 12.1 H (7.4-10.4) fl Immature Gran % (Auto) 0.2 (0-0.5) % Neut % (Auto) 76.7 H (45.5-73.1) % Lymph % (Auto) 15.5 L (18.3-44.2) % [place] % (Auto) 7.0 (2.6-8.5) % Eos % (Auto) 0.4 (0-4.4) % Baso % (Auto) 0.2 (0.2-1.2) % Lymph # (Auto) 0.73 L (0.9-3.2) K/mm3 [place] # (Auto) 0.3 (0.1-0.6) K/mm3 Eos # (Auto) 0.0 (0-0.3) K/mm3 Baso # (Auto) 0.0 (0.0-0.1) K/mm3 Abs Immat Gran (auto) 0.01 (0.00-0.031) K/mm3 Absolute Neuts (auto) 3.6 (1.3-6.7) K/mm3 Absolute Nucleated RBC 0.000 (0.0-0.012) K/mm3 Nucleated RBC % 0.0 (0.0-0.2) % Sodium 139 (137-145) mmol/L Potassium 4.3 (3.4-5.0) mmol/L Chloride 103 (98-107) mmol/L Carbon Dioxide 26 (22-30) mmol/L Anion Gap 10 (4-12) mmol/L BUN 13 (7-17) mg/dL Creatinine 0.61 L (0.7-1.0) mg/dL Estim Creat Clear Calc 110 ml/min Estimated GFR > 60 (59 - ) Glucose 94 (65-110) mg/dL Calcium 9.3 (8.4-10.2) mg/dL Total Bilirubin 0.9 (0.2-1.3) mg/dL AST 32 (14-36) U/L ALT 32 (6-35) U/L Alkaline Phosphatase 106 (38-126) U/L Total Protein 8.0 (6.3-8.2) g/dL Albumin 4.4 (3.5-5.1) g/dL Lipase 28 (23-300) U/L Urine Color Yellow (Yellow) Urine Appearance Clear (Clear) Urine pH 7.0 (5.0-9.0) Ur Specific [place] 1.020 (1.001-1.035) Urine Protein Negative (Negative) mg/dL Urine Glucose (UA) Negative (Negative) mg/dL Urine Ketones Negative (Negative) mg/dL Ur Blood (Man) Negative (Negative) Urine Nitrate Negative (Negative) Urine Bilirubin Negative (Negative) Urine Urobilinogen 0.2 (<2.0) mg/dL Leukocyte Esterase Rfl Negative (Negative) ANGELINA/UL Imaging Data Radiologist's impression: Impressions Chest/Abdomen/Pelvis CTA 09/07/24 13:56 Impression: No acute abnormality. Diffuse hepatic steatosis. Tiny gallstone. Discharge Plan Discharge Clinical Impression: Abdominal pain Qualifiers: Abdominal location: epigastric Qualified Code(s): R10.13 - Epigastric pain Patient Disposition: Home, Self-Care Condition: Stable Instructions: Antibiotic Form, Abdominal Pain (ED) Additional Instructions: Tylenol and ibuprofen for pain control. Have close follow-up with your primary care physician. If you have any worsening symptoms then please call or return to the emergency department. Patient Language: Croatian Follow-up/Referrals: Jamil,MD Brando [Primary Care Provider] -
[2024-09-07 13:32] LABS: Alanine Aminotransferase 32 U/L (6-35); Albumin Level 4.4 g/dL (3.5-5.1); Alkaline Phosphatase 106 U/L (38-126); Anion Gap 10 mmol/L (4-12); Aspartate Amino Transferase 32 U/L (14-36); Bilirubin,Total 0.9 mg/dL (0.2-1.3); Blood Urea Nitrogen 13 mg/dL (7-17); Calcium 9.3 mg/dL (8.4-10.2); Carbon Dioxide 26 mmol/L (22-30); Chloride 103 mmol/L (98-107); Estimated CRCL calculation 110 ml/min; Estimated Glomerular Filt Rate > 60; Glucose 94 mg/dL (65-110); Lipase 28 U/L (23-300); Potassium 4.3 mmol/L (3.4-5.0); Sodium 139 mmol/L (137-145)
[2024-09-07 13:41] VITALS: BP 192/108; PULSE 81; RESP 16; O2SAT 100
[2024-09-07 14:57] VITALS: BP 180/100; PULSE 81; RESP 14; O2SAT 100
== END 2024-09-07 15:22 | disposition home or self-care (01) ==
PROVIDERS: Emergency Provider Emergency Medicine; PCP Family Medicine
DX: R10.13 Epigastric pain (principal); G35 Multiple sclerosis; K76.0 Fatty (change of) liver, not elsewhere classified
CPT/HCPCS: 36415; 71275; 74174; 80053; 81003; 83690; 85025; 99284; Q9967